=== PATIENT | female | born 1965 | race Caucasian/White ===

== ENCOUNTER 2019-03-05 10:14 | Inpatient (IN) | payer MEDICARE, OTHER, MEDICAID, SELFPAY ==
[2019-03-05] VITALS (19 sets, daily range): BP systolic 99–171; BP diastolic 52–112; PULSE 74–115; RESP 12–30; TEMP 36.3–37.7; O2SAT 92–100
--- NOTE | ~2019-03-05 | CT_ITS ---
EXAMINATION: CT abdomen pelvis w con DATE: 03/05/2019 11:09 INDICATION: Generalized abdominal pain. TECHNIQUE: Computed tomography (CT) of the abdomen and pelvis was performed with 100 mL Omnipaque 350 intravenous contrast. Automated exposure control and iterative reconstruction technique were employe d. The dose-length product was 694.91 mGy-cm. COMPARISON: None. FINDINGS: The visualized portions of the lung bases demonstrate mild atelectasis on the left. No pleu ral effusion. The heart size is normal. No pericardial effusion. The liver, gallbladder, pancreas, an d adrenal glands are normal. There is a 6 mm low-attenuation lesion in the spleen, likely benign. The pancreas and adrenal glands are normal. There is a 1 mm stone in right kidney. There is an 8 mm cyst in left kidney. There are no dilated loops of bowel. The appendix is normal. There is a 9.6 x 8.7 x 10.9 cm mixed hyperdense and hypodense mass in the expected area of the uterus. There is a moderate v olume of hemoperitoneum. There are no pathologically enlarged lymph nodes. 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 IMPRESSION: 1. 10.9 cm heterogeneous mass in the expected area of the uterus, which may be hematoma or uterine fi broids or ovarian mass complicated by hematoma. Neoplasm is not excluded. Consider pelvis MRI without and with contrast after stabilization. 2. Moderate volume of hemoperitoneum. 3. I discussed these results with Dr. Traylor on 03/05/19 at 11:30 AM. Reviewed, dictated and finalized at location A. OMER SUPPORT REPRESENTATIVE IMPRESSION: 1. 10.9 cm heterogeneous mass in the expected area of the uterus, which may be hematoma or uterine fibroids or ovarian mass complicated by hematoma. Neoplasm is not excluded. Consider pelvis MRI without and with contrast after stabilizat ion. 2. Moderate volume of hemoperitoneum. 3. I discussed these results with Dr. Traylor on 03/05/19 at 11:30 AM.
--- NOTE | 2019-03-05 10:20 | ED.ABDPAIN ---
HPI - Abdominal Pain General Chief Complaint: Abdominal Pain Stated Complaint: low abd pain Time Seen by Provider: 03/05/19 10:19 Source: patient, RN notes reviewed and other (nurse) Mode of arrival: EMS Limitations: no limitations History of Present Illness HPI narrative: Pt is a 53 y/o female who presents to the ED, via EMS, with c/o ABD pain since 8am today. Pt reports that she woke up with the pain, but it became excrutiating after she coughed and felt a popping sensation. The pain is in her lower ABD and around her naval. She additionally notes N/V. Pt reports that she'd been on her last period for the past 2 weeks with it stopping completely yesterday, but after the popping sensation this morning she began to notice trace vaginal bleeding again. She states that she feels like something is going to come out if she doesn't keep her ABD/pelvic muscles contracted. Pt denies back pain/tenderness, fever, chills, or a Hx of pain like this before. Pt reports a Hx of HTN (on medication). Pt denies a Hx of HLD, DM, smoking, drinking ETOH, emphysema, or asthma. She also denies a chance of . Per nurse, the pt had been given 4 Zofran and 4 Morphine by EMS while en route to the ED. A year ago the pt underwent a uterine ablation that was followed by a perforation of her uterus with intra abdominal bleeding, which led to her being transferred to [place]. The pt also has a Hx if anemia for which she takes an iron supplement. MD elicited complaint: abdominal pain Pertinent past history: none Onset (ago): hour(s) (since 8am) Pain Consistency: constant Location: other (across lower ABD and around naval) Context: confirms other (woke up with pain, but worsened after feeling a pop when coughing) Associated symptoms: nausea and vomiting Treatments prior to arrival: other (4 Zofran, 4 Morphine) Related Data Home Medications Medication Instructions Recorded Confirmed amlodipine 10 mg PO DAILY 01/18/19 03/18/19 bupropion HCl 300 mg PO DAILY 01/18/19 03/18/19 carbidopa-levodopa 2 tablet PO QID 01/18/19 03/18/19 clonidine HCl 0.1 mg PO BID 12/04/19 02/01/20 diazepam 10 mg PO TID PRN 01/18/19 03/18/19 escitalopram oxalate 20 mg PO DAILY 01/18/19 03/18/19 folic acid 5 mg PO DAILY 01/18/19 03/18/19 hydrochlorothiazide 12.5 mg PO BID 01/18/19 03/18/19 hydrocodone-acetaminophen 1 tablet PO BID PRN 01/18/19 03/18/19 mirtazapine 15 mg PO QPM 01/18/19 03/18/19 propranolol 60 mg PO BID 01/18/19 03/18/19 ropinirole 2 mg PO TID 01/18/19 03/18/19 Allergies Allergy/AdvReac Type Severity Reaction Status Date / Time codeine Allergy Unknown Nausea and Verified 03/05/19 10:15 Vomiting Review of Systems Review of Systems: All systems reviewed & are unremarkable except as noted in HPI and below Constitutional: Constitutional: Denies chills and Denies fever(s) Gastrointestinal: Gastrointestinal: Reports abdominal pain (across lower ABD and around naval), Reports nausea and Reports vomiting Genitourinary: Genitourinary: Reports abnormal vaginal bleeding Musculoskeletal: Musculoskeletal: Denies back pain (or tenderness) [facility] Past Medical History Medical History (Updated 03/18/19 @ 01:22 by Luna Espinal MD) Hemoperitoneum HTN (hypertension) Iron deficiency anemia sees hematology and receives iron infusions (normal spontaneous vaginal delivery) x 5 Parkinson disease patient stated this was due to her severe iron storage problem and is a parkinson like disease Uterine perforation 2019 following uterine ablation with Dr. Gaby Forbes at [facility], occurred with intra abdominal bleeding and transferred to [place] Surgical History Surgical History (Updated 03/17/19 @ 20:59 by Justice Molina) H/O prior ablation treatment 2019, uterine ablation S/P FRANSISCO-BSO Family History Family History Mother Hypertension Father Family history of malignant neoplasm of bone, Onset
[2019-03-05] MEDS: LORAZEPAM INJ 2 MG/ML VIAL 0.5 MG IV PUSH ×2 (10:34→12:30)
[2019-03-05] MEDS: HYDROMORPHONE HCL 1 MG/ML INJ 0.5 MG IV PUSH ×11 (10:34→16:36)
[2019-03-05] MEDS: ONDANSETRON INJ 4 MG/2 ML VIAL IV PUSH (10:34)
[2019-03-05] MEDS: SODIUM CHLORIDE 0.9% IV 1,000 ML 999 ML IV CONT ×2 (10:35→11:54)
--- NOTE | 2019-03-05 10:40 | PC.NURSE ---
Patient is flailing in bed at this time, ativan and dilaudid given.
[2019-03-05 10:52] LABS: Basophils Absolute Auto 0.1 K/mm3 (0.0-0.1); Basophils Percent Auto 0.6 % (0.2-1.2); Eosinophils Absolute Auto 0.1 K/mm3 (0-0.3); Eosinophils Percent Auto 0.7 % (0-4.4); Hematocrit 36.9 % (37.0-47.0); Hemoglobin 12.3 g/dL (12.0-15.0); Immature Granulocyte Absolute 0.13 K/mm3 (0.00-0.031); Immature Granulocyte Percent A 0.7 % (0-0.5); Lymphocytes Absolute Auto 1.48 K/mm3 (0.9-3.2); Lymphocytes Percent Auto 7.9 % (18.3-44.2); Mean Corpuscular HGB Conc 33.3 g/dl (32-36); Mean Corpuscular Hemoglobin 30.9 pg (26-34); Mean Corpuscular Volume 92.7 fl (80-100); Mean Platelet Volume 9.6 fl (7.4-10.4); Monocytes Absolute Auto 0.9 K/mm3 (0.1-0.6); Monocytes Percent Auto 4.9 % (2.6-8.5); Neutrophils Absolute Auto 15.9 K/mm3 (1.3-6.7); Neutrophils Percent Auto 85.2 % (45.5-73.1); Platelet Count Result 451 k/mm3 (150-375); Red Blood Count 3.98 M/mm3 (4.2-5.4); White Blood Count 18.7 K/mm3 (4.5-10.0)
[2019-03-05 11:01] LABS: Blood Urea Nitrogen 11 mg/dL (8-26); Estimated Glomerular Filt Rate > 60
[2019-03-05 11:04] LABS: Alanine Aminotransferase 23 U/L (4-35); Albumin Level 4.1 g/dL (3.5-5.1); Alkaline Phosphatase 151 U/L (38-126); Aspartate Amino Transferase 24 U/L (14-36); Bilirubin,Total 0.3 mg/dL (0.2-1.3); Blood Urea Nitrogen 12 mg/dL (7-17); Calcium 9.1 mg/dL (8.4-10.2); Carbon Dioxide 21 mmol/L (22-30); Chloride 105 mmol/L (98-107); Estimated Glomerular Filt Rate > 60; Glucose 121 mg/dL (65-105); Lipase 65 U/L (23-300); Sodium 137 mmol/L (137-145)
[2019-03-05 11:31] LABS: Add Urine Microscopic? YES; Appearance Urine Clear (Clear); Bilirubin Urine Negative (Negative); Blood Urine 2+ (Negative); Color Urine Yellow (Yellow); Glucose Urine UA Negative (Negative); Ketones Urine Negative (Negative); Leukocyte Esterase Ur Negative LEU/UL (Negative); Mucus Urine Rare /lpf; Nitrate Urine Negative (Negative); Protein Urine 1+ mg/dL (Negative); Squamous Epithelial Cell Urine Rare /hpf (Few); Urobilinogen Urine Negative mg/dL (<2.0); WBC Urine 0-3 /hpf
--- NOTE | 2019-03-05 12:20 | PM.IMHP ---
H&P: HPI History of Present Illness Chief complaint: low abd pain Narrative: Cande Julian is a 53 year old female with sudden abdominal pain that woke her from sleep this am. Had a coughing/gagging episode and pain increased severely so she came to ER. After several doses of dauladid, she is still writhing in pain. Patient states cycles have been mostly regular and light except this past cycle lasted 2 wks and was heavy. [facility] Past Medical History Medical History (Updated 03/05/19 @ 12:32 by Liz Whitlock MD) HTN (hypertension) Iron deficiency anemia sees hematology and receives iron infusions (normal spontaneous vaginal delivery) x 5 Parkinson disease patient stated this was due to her severe iron storage problem and is a parkinson like disease Uterine perforation 2019 following uterine ablation with Dr. Gaby Forbes at [facility], occurred with intra abdominal bleeding and transferred to [place] Surgical History Surgical History (Updated 03/05/19 @ 12:33 by Liz Whitlock MD) H/O prior ablation treatment 2019, uterine ablation Family History Family History (Updated 10/12/13 @ 07:13 by DOCTOR UNKNOWN) Mother Hypertension Father Family history of malignant neoplasm of bone, Onset Age: 77 Social History Social History Smoking status: Never smoker Alcohol intake: current Gender identity (if verbalized by the patient): Female Meds Home Medications and Allergies Home Medications Medication Instructions Recorded Confirmed Type amlodipine 01/18/19 History amoxicillin-pot clavulanate 1 tablet PO Q12H #14 tablet 01/18/19 Rx [Augmentin] bupropion HCl mg PO 01/18/19 History carbidopa-levodopa tablet 01/18/19 History clonidine HCl 01/18/19 History clonidine HCl 01/18/19 History diazepam 01/18/19 History escitalopram oxalate mg 01/18/19 History folic acid 5 mg PO DAILY 01/18/19 History hydrochlorothiazide 01/18/19 History hydrocodone-acetaminophen tablet 01/18/19 History mirtazapine mg 01/18/19 History propranolol 01/18/19 History ropinirole mg 01/18/19 History Allergies Allergy/AdvReac Type Severity Reaction Status Date / Time codeine Allergy Unknown Nausea and Verified 03/05/19 10:15 Vomiting Vital Signs Vital Signs - 24 hr 03/05/19 10:09 03/05/19 11:19 03/05/19 11:23 Temperature 97.3 F L 97.3 F L Pulse Rate 115 H 113 H Respiratory Rate 30 H 18 Blood Pressure 164/112 H 171/110 H Pulse Oximetry 99 97 03/05/19 12:13 Temperature 97.3 F L Pulse Rate Respiratory Rate Blood Pressure Pulse Oximetry Exam Const: General: in distress Other: writhing and shaking in bed on side GI: GI Palp: Yes Soft to palpation, Yes Tenderness to palpation present (GI) and Yes Guarding due to palpation present (GI) Psych: Mental Status: mental status grossly normal H&P: Results Labs Labs: Short CBC 03/05/19 Range/Units 10:47 WBC 18.7 H (4.5-10.0) K/mm3 Hgb 12.3 (12.0-15.0) g/dL Hct 36.9 L (37.0-47.0) % Plt Count 451 H (150-375) k/mm3 BMP 03/05/19 03/05/19 10:47 10:58 Sodium 137 Potassium 4.0 Chloride 105 Carbon Dioxide 21 L BUN 12 11 Creatinine 0.70 0.70 Glucose 121 H Calcium 9.1 Liver Function 03/05/19 Range/Units 10:47 Total Bilirubin 0.3 (0.2-1.3) mg/dL AST 24 (14-36) U/L ALT 23 (4-35) U/L Alkaline Phosphatase 151 H (38-126) U/L Albumin 4.1 (3.5-5.1) g/dL Urine 03/05/19 Range/Units 11:19 Urine Color Yellow (Yellow) Urine Appearance Clear (Clear) Urine pH 6.0 (5.0-9.0) Ur Specific [place] 1.040 H (1.001-1.035) Urine Protein 1+ H (Negative) mg/dL Urine Glucose (UA) Negative (Negative) mg/dL Assessment and Plan Assessment and plan (1) Hemoperitoneum: Code(s): K66.1 - Hemoperitoneum Status: Acute Assessment and Plan: per CT scan Recommend to proceed with diagnostic lapa
--- NOTE | 2019-03-05 13:21 | WPDANESEPPF ---
Anes - Initial Pre Proc Eval Procedure: Operation Date: 03/05/19 13:30 Proposed Procedures p Diagnostic Laparoscopy Pos Lap - Liz Whitlock MD Date/Time: 03/05/19 13:21 Surgeon: Liz Whitlock MD Pre Op Diagnosis: low abd pain Patient Data Age: 53 Gender: F Height: Weight: 81.8 kg Last Vital Signs Temp 36.3 C L 03/05/19 12:13 Pulse 113 H 03/05/19 11:19 Resp 18 03/05/19 11:19 BP 171/110 H 03/05/19 11:19 Pulse Ox 97 03/05/19 11:19 Allergies Allergy/AdvReac Type Severity Reaction Status Date / Time codeine Allergy Unknown Nausea and Verified 03/05/19 10:15 Vomiting Home Medications Medication Instructions Recorded Confirmed Type amlodipine 01/18/19 History amoxicillin-pot clavulanate 1 tablet PO Q12H #14 tablet 01/18/19 Rx [Augmentin] bupropion HCl mg PO 01/18/19 History carbidopa-levodopa tablet 01/18/19 History clonidine HCl 01/18/19 History clonidine HCl 01/18/19 History diazepam 01/18/19 History escitalopram oxalate mg 01/18/19 History folic acid 5 mg PO DAILY 01/18/19 History hydrochlorothiazide 01/18/19 History hydrocodone-acetaminophen tablet 01/18/19 History mirtazapine mg 01/18/19 History propranolol 01/18/19 History ropinirole mg 01/18/19 History Laboratory Tests 03/05/19 03/05/19 03/05/19 10:47 10:47 10:58 WBC 18.7 K/mm3 H K/mm3 (4.5-10.0) RBC 3.98 M/mm3 L M/mm3 (4.2-5.4) Hgb 12.3 g/dL g/dL (12.0-15.0) Hct 36.9 % L % (37.0-47.0) MCV 92.7 fl fl (80-100) MCH 30.9 pg pg (26-34) MCHC 33.3 g/dl g/dl (32-36) RDW 13.0 % % (11.5-14.5) Plt Count 451 k/mm3 H k/mm3 (150-375) MPV 9.6 fl fl (7.4-10.4) Immature Gran % (Auto) 0.7 % H % (0-0.5) Neut % (Auto) 85.2 % H % (45.5-73.1) Lymph % (Auto) 7.9 % L % (18.3-44.2) [place] % (Auto) 4.9 % % (2.6-8.5) Eos % (Auto) 0.7 % % (0-4.4) Baso % (Auto) 0.6 % % (0.2-1.2) Lymph # (Auto) 1.48 K/mm3 K/mm3 (0.9-3.2) [place] # (Auto) 0.9 K/mm3 H K/mm3 (0.1-0.6) Eos # (Auto) 0.1 K/mm3 K/mm3 (0-0.3) Baso # (Auto) 0.1 K/mm3 K/mm3 (0.0-0.1) Abs Immat Gran (auto) 0.13 K/mm3 H K/mm3 (0.00-0.031) Absolute Neuts (auto) 15.9 K/mm3 H K/mm3 (1.3-6.7) Absolute Nucleated RBC 0.0 K/mm3 K/mm3 (0.0-0.012) Nucleated RBC % 0.0 % % (0.0-0.2) Sodium 137 mmol/L mmol/L (137-145) Potassium 4.0 mmol/L mmol/L (3.4-5.0) Chloride 105 mmol/L mmol/L (98-107) Carbon Dioxide 21 mmol/L L mmol/L (22-30) BUN 12 mg/dL mg/dL 11 mg/dL mg/dL (7-17) (8-26) Creatinine 0.70 mg/dL mg/dL 0.70 mg/dL mg/dL (0.7-1.0) (0.7-1.2) Estim Creat Clear Calc Not Reportable Not Reportable Estimated GFR > 60 > 60 (59 - ) (59 - ) Glucose 121 mg/dL H mg/dL (65-105) Calcium 9.1 mg/dL mg/dL (8.4-10.2) Total Bilirubin 0.3 mg/dL mg/dL (0.2-1.3) AST 24 U/L U/L (14-36) ALT 23 U/L U/L (4-35) Alkaline Phosphatase 151 U/L H U/L (38-126) Total Protein 7.0 g/dL g/dL (6.3-8.2) Albumin 4.1 g/dL g/dL (3.5-5.1) Lipase 65 U/L U/L (23-300) Urine Color Urine Appearance Urine pH Ur Specific [place] Urine Protein Urine Glucose (UA) Urine Ketones Ur Blood (Man) Urine Nitrate Urine Bilirubin Urine Urobilinogen Leukocyte Esterase Rfl Urine RBC Urine WBC Ur Squamous Epith Cells Hyaline Casts Urine Mucus 03/05/19 11:19 WBC RBC Hgb Hct MCV MCH MCHC RDW
[2019-03-05] MEDS: ceFAZolin SODIUM 1 GM VIAL 2 GM IV PUSH (13:55)
--- NOTE | 2019-03-05 15:39 | PM.OP ---
Procedure Note - Brief Procedure Note - Brief Date of procedure: 03/05/19 Pre-op diagnosis: low abd pain Hemoperitoneum Abdominal pain Post-op diagnosis: other (same plus uterine perforations) Procedure performed: diagnostic laparoscopy converted to FRANSISCO-BSO Surgeon: Liz Whitlock MD Estimated blood loss (mL): 1,600 (450 approximate found in abdomen upon opening and 1150 EBL during case) Drains: Yes (jeffrey) Packing: No Pathology: yes Complications: Other complications (bleeding) Condition: stable Disposition: PACU Findings: large hemoperitoneum noted upon laparoscopy; upper right fundus noted to have what appeared to be a perforation that is bleeding; posterior uterus with 2 large areas also noted to be perforations; uterus extremely friable; tubes, ovaries, and peritoneal surfaces appear and palpate as normal
[2019-03-05] MEDS: LACTATED RINGERS 1,000 ML 30 ML IV CONT (15:41)
--- NOTE | 2019-03-05 15:52 | PM.DS ---
DS: Diagnosis Admitting Diagnosis Admitting Diagnosis: Hemoperitoneum abdominal pain Discharge Diagnosis (1) S/P FRANSISCO-BSO: Code(s): Z90.710 - Acquired absence of both cervix and uterus; Z90.722 - Acquired absence of ovaries, bilateral; Z90.79 - Acquired absence of other genital organ(s) Status: Acute DS: Summary Hospital Course Reason for hospitalization: post op care Hospital Course: Admitted through ER, taken for laparoscopy which was converted to FRANSISCO-BSO. Tolerating regular diet, voiding, and ambulating prior to dc. Status at Discharge Functional status at discharge: independent ambulation Overall status at discharge: patient is progressing back to baseline Time Spent with Patient Time attestation: Total time spent providing and/or coordinating discharge services: Time spent: Less than 30 minutes DS: Data Data Completed and Pending Pending studies at discharge: Pending at discharge 03/05/19 14:57 Surgical [PTH] Routine Labs on day of discharge: Labs from last 24 hours 03/05/19 03/05/19 03/05/19 11:54 11:19 10:58 WBC RBC Hgb Hct MCV MCH MCHC RDW Plt Count MPV Immature Gran % (Auto) Neut % (Auto) Lymph % (Auto) [place] % (Auto) Eos % (Auto) Baso % (Auto) Lymph # (Auto) [place] # (Auto) Eos # (Auto) Baso # (Auto) Abs Immat Gran (auto) Absolute Neuts (auto) Absolute Nucleated RBC Nucleated RBC % Sodium Potassium Chloride Carbon Dioxide BUN 11 Creatinine 0.70 Estim Creat Clear Calc Not Reportable Estimated GFR > 60 Glucose Calcium Total Bilirubin AST ALT Alkaline Phosphatase Total Protein Albumin Lipase Urine Color Yellow Urine Appearance Clear Urine pH 6.0 Ur Specific [place] 1.040 H Urine Protein 1+ H Urine Glucose (UA) Negative Urine Ketones Negative Ur Blood (Man) 2+ H Urine Nitrate Negative Urine Bilirubin Negative Urine Urobilinogen Negative Leukocyte Esterase Rfl Negative Urine RBC 3-5 H Urine WBC 0-3 Ur Squamous Epith Cells Rare Hyaline Casts 1-2 Urine Mucus Rare Blood Type A Positive Antibody Screen Negative 03/05/19 03/05/19 10:47 10:47 WBC 18.7 H RBC 3.98 L Hgb 12.3 Hct 36.9 L MCV 92.7 MCH 30.9 MCHC 33.3 RDW 13.0 Plt Count 451 H MPV 9.6 Immature Gran % (Auto) 0.7 H Neut % (Auto) 85.2 H Lymph % (Auto) 7.9 L [place] % (Auto) 4.9 Eos % (Auto) 0.7 Baso % (Auto) 0.6 Lymph # (Auto) 1.48 [place] # (Auto) 0.9 H Eos # (Auto) 0.1 Baso # (Auto) 0.1 Abs Immat Gran (auto) 0.13 H Absolute Neuts (auto) 15.9 H Absolute Nucleated RBC 0.0 Nucleated RBC % 0.0 Sodium 137 Potassium 4.0 Chloride 105 Carbon Dioxide 21 L BUN 12 Creatinine 0.70 Estim Creat Clear Calc Not Reportable Estimated GFR > 60 Glucose 121 H Calcium 9.1 Total Bilirubin 0.3 AST 24 ALT 23 Alkaline Phosphatase 151 H Total Protein 7.0 Albumin 4.1 Lipase 65 Urine Color Urine Appearance Urine pH Ur Specific [place] Urine Protein Urine Glucose (UA) Urine Ketones Ur Blood (Man) Urine Nitrate Urine Bilirubin Urine Urobilinogen Leukocyte Esterase Rfl Urine RBC Urine WBC Ur Squamous Epith Cells Hyaline Casts Urine Mucus Blood Type Antibody Screen Discharge Plan Discharge Attending physician on discharge: Liz Whitlock Discharging Clinician: Liz Whitlock Anticipated Discharge Date/Time: 03/08/19 07:26 Patient Disposition: Home, Self-Care Activity: no shower, may drive after 2 weeks and pelvic rest Diet: regular Wound Care Instructions: incision open to air Patient Instructions: Hysterectomy (GEN) Follow-up/Referrals: Sanjay Thayer MD [Primary Care Provider] - Liz Whitlock MD [Physician] - 1 Week Discharge Medications: New hydrocodon
[2019-03-05] MEDS: MIDAZOLAM HCL 2 MG/2 ML VIAL IV PUSH (16:42)
[2019-03-05 17:23] LABS: Hematocrit 28.9 % (37.0-47.0); Hemoglobin 9.4 g/dL (12.0-15.0); Mean Corpuscular HGB Conc 32.5 g/dl (32-36); Mean Corpuscular Hemoglobin 30.9 pg (26-34); Mean Corpuscular Volume 95.1 fl (80-100); Mean Platelet Volume 10.1 fl (7.4-10.4); Platelet Count Result 368 k/mm3 (150-375); Red Blood Count 3.04 M/mm3 (4.2-5.4); Red Cell Distribution Width 13.3 % (11.5-14.5); White Blood Count 21.1 K/mm3 (4.5-10.0)
[2019-03-05 17:58] LABS: Transferrin 203 mg/dL (206-381)
[2019-03-05] MEDS: DEXTROSE 5%/LACTATED RINGERS 1,000 ML 125 ML IV CONT (18:21)
[2019-03-05] MEDS: KETOROLAC 30 MG/ML VIAL (*BKC) IV PUSH (19:02)
--- NOTE | 2019-03-05 19:04 | PC.NURSE ---
At 1752, pt admitted to 2nd floor room 289 per stretcher. Alert and oriented x3.
[2019-03-06] VITALS (7 sets, daily range): BP systolic 92–131; BP diastolic 46–78; PULSE 79–81; RESP 16–18; TEMP 36.9–37.4; O2SAT 90–100
[2019-03-06] MEDS: DEXTROSE 5%/LACTATED RINGERS 1,000 ML 125 ML IV CONT ×2 (02:25→11:02)
[2019-03-06] MEDS: KETOROLAC 30 MG/ML VIAL (*BKC) IV PUSH ×3 (03:55→16:52)
[2019-03-06 04:43] LABS: Basophils Percent Auto 0.3 % (0.2-1.2); Hematocrit 26.2 % (37.0-47.0); Hemoglobin 8.5 g/dL (12.0-15.0); Immature Granulocyte Absolute 0.09 K/mm3 (0.00-0.031); Immature Granulocyte Percent A 0.7 % (0-0.5); Lymphocytes Absolute Auto 1.44 K/mm3 (0.9-3.2); Lymphocytes Percent Auto 11.1 % (18.3-44.2); Mean Corpuscular HGB Conc 32.4 g/dl (32-36); Mean Corpuscular Volume 95.6 fl (80-100); Mean Platelet Volume 9.8 fl (7.4-10.4); Monocytes Percent Auto 7.7 % (2.6-8.5); Neutrophils Absolute Auto 10.4 K/mm3 (1.3-6.7); Neutrophils Percent Auto 80.2 % (45.5-73.1); Platelet Count Result 336 k/mm3 (150-375); Red Blood Count 2.74 M/mm3 (4.2-5.4); Red Cell Distribution Width 13.4 % (11.5-14.5)
--- NOTE | 2019-03-06 06:22 | OP_ITS ---
DATE OF PROCEDURE: 03/05/2019 PREOPERATIVE DIAGNOSIS: Hemoperitoneum, abdominal pain. POSTOPERATIVE DIAGNOSIS: Hemoperitoneum, abdominal pain plus uterine rupture. PROCEDURE: Diagnostic laparoscopy, total abdominal hysterectomy, and bilateral salpingo-oophorectomy. SURGEON: Liz Whitlock M.D.. ANESTHESIA: General with ET tube. FINDINGS: Upon opening laparoscopically reveal a large hemoperitoneum as the blood is removed. There is visible bleeding and what appears to be a perforation at the right fundus on the posterior wall as well as the left posterior and mid uterus are bleeding and appears to have perforations. Ovaries were not visible laparoscopically. There were large clots that were not able to be removed with the suction device. Due to the appearance of the uterus, decision was made to proceed with hysterectomy. Upon opening, the uterus is noted to be incredibly friable and there are multiple sites that are bleeding. The ovaries and tubes are eventually visualized and appear normal. The peritoneal cavity appears smooth. There were no implantation or visible lesion on the peritoneal surfaces. The tubes on the left side are somewhat edematous, otherwise appear normal. The cervix appears normal as does the lower uterine segment. ESTIMATED BLOOD LOSS: 450 cc, evacuated prior to surgery, started during the laparoscopy with an additional 1250 cc loss during the procedure. PATHOLOGY: Uterus, tubes and ovaries. PROCEDURE: The patient was taken to the operating room, placed under anesthesia in the dorsal lithotomy position. She was prepped and draped in the usual sterile fashion. The bladder was drained with a red rubber catheter at 450 cc of clear yellow urine. The cervix was grasped on the anterior lip with a tenaculum. The uterus is not able to be sounded and the [address] manipulator was placed. The attention was then turned to the abdomen. A vertical skin incision was made at the base of the umbilicus. The abdomen was tented. The Veress needle placed. Water drop test was normal. Blood was aspirated at the time of checking for proper placement. Opening patient pressure was 5 mmHg. Pneumoperitoneum was obtained with the CO2 to a patient pressure of 15 mmHg. The 5 mm Optiview was then placed while tenting the abdomen. Intraabdominal placement was confirmed with the laparoscope. The patient was placed in Trendelenburg. A 5 mm skin incision was made approximately 4 cm above the symphysis pubis. Due to the large size of what appears to be the uterus, the trocar was placed under direct visualization. The aspirator is used to remove the visible superficial blood. After removing the superficial blood, the uterus and fundus is visible and there appears to be an area of bleeding on the right fundus that appears to be ruptured. The manipulator is used to continue suctioning and the posterior wall of the uterus was eventually able to be visualized and they were 2 additional areas that appear to have bleeding and rupture. The ovary is not visible at this time. Due to the findings on laparoscopy, decision was made to proceed with open exploratory laparotomy and total abdominal hysterectomy with bilateral salpingo-oophorectomy. The pneumoperitoneum was reduced. The instruments were removed. A scalpel was used to open a Pfannenstiel skin incision through the prior lower incision. The incision was carried down to the fascia, which was nicked in the midline. The fascial edges were grasped with oschners and the muscles were off using sharp and blunt dissection. The rectus muscles were in the midline. The peritoneum was tented, entered with Metzenbaum, and extended with blunt traction. The bowel was packed away using moist laparotomy sponges and the clots were removed manually using
--- NOTE | 2019-03-06 08:45 | WPDANESPN ---
Anes - Prog Note Post-Op Date/Time: 03/06/19 08:45 Cardiovascular status: normal Respiratory status: normal Airway patency: baseline Mental status: baseline Post-Op hydration status: normal Vital Signs: Last Vital Signs Temp 37.4 C 03/06/19 02:00 Pulse 86 03/05/19 23:00 Resp 16 03/06/19 04:00 BP 131/78 03/06/19 04:00 Pulse Ox 98 03/06/19 04:00 I/O: Intake & Output 03/05/19 03/06/19 03/06/19 23:59 07:59 15:59 Intake Total 700 1230 Output Total 600 1100 Balance 100 130 Laboratory Tests 03/06/19 04:36 03/05/19 10:58 03/05/19 03/05/19 03/05/19 10:47 10:47 10:58 WBC 18.7 H RBC 3.98 L Hgb 12.3 Hct 36.9 L MCV 92.7 MCH 30.9 MCHC 33.3 RDW 13.0 Plt Count 451 H MPV 9.6 Immature Gran % (Auto) 0.7 H Neut % (Auto) 85.2 H Lymph % (Auto) 7.9 L Stanton % (Auto) 4.9 Eos % (Auto) 0.7 Baso % (Auto) 0.6 Lymph # (Auto) 1.48 Stanton # (Auto) 0.9 H Eos # (Auto) 0.1 Baso # (Auto) 0.1 Abs Immat Gran (auto) 0.13 H Absolute Neuts (auto) 15.9 H Absolute Nucleated RBC 0.0 Nucleated RBC % 0.0 Sodium 137 Potassium 4.0 Chloride 105 Carbon Dioxide 21 L BUN 12 11 Creatinine 0.70 0.70 Estim Creat Clear Calc Not Reportable Not Reportable Estimated GFR > 60 > 60 Glucose 121 H Calcium 9.1 Transferrin Ferritin Total Bilirubin 0.3 AST 24 ALT 23 Alkaline Phosphatase 151 H Total Protein 7.0 Albumin 4.1 Lipase 65 Urine Color Urine Appearance Urine pH Ur Specific [place] Urine Protein Urine Glucose (UA) Urine Ketones Ur Blood (Man) Urine Nitrate Urine Bilirubin Urine Urobilinogen Leukocyte Esterase Rfl Urine RBC Urine WBC Ur Squamous Epith Cells Hyaline Casts Urine Mucus Blood Type Antibody Screen 03/05/19 03/05/19 03/05/19 11:19 11:54 17:10 WBC 21.1 H RBC 3.04 L Hgb 9.4 L Hct 28.9 L MCV 95.1 MCH 30.9 MCHC 32.5 RDW 13.3 Plt Count 368 MPV 10.1 Immature Gran % (Auto) Neut % (Auto) Lymph % (Auto) Stanton % (Auto) Eos % (Auto) Baso % (Auto) Lymph # (Auto) Stanton # (Auto) Eos # (Auto) Baso # (Auto) Abs Immat Gran (auto) Absolute Neuts (auto) Absolute Nucleated RBC Nucleated RBC % Sodium Potassium Chloride Carbon Dioxide BUN Creatinine Estim Creat Clear Calc Estimated GFR Glucose Calcium Transferrin Ferritin Total Bilirubin AST ALT Alkaline Phosphatase Total Protein Albumin Lipase Urine Color Yellow Urine Appearance Clear Urine pH 6.0 Ur Specific [place] 1.040 H Urine Protein 1+ H Urine Glucose (UA) Negative Urine Ketones Negative Ur Blood (Man) 2+ H Urine Nitrate Negative Urine Bilirubin Negative Urine Urobilinogen Negative Leukocyte Esterase Rfl Negative Urine RBC 3-5 H Urine WBC 0-3 Ur Squamous Epith Cells Rare Hyaline Casts 1-2 Urine Mucus Rare Blood Type A Positive Antibody Screen Negative 03/05/19 03/05/19 03/06/19 17:10 17:10 04:36 WBC 13.0 H RBC 2.74 L Hgb 8.5 L Hct 26.2 L MCV 95.6 MCH 31.0 MCHC 32.4 RDW 13.4 Plt Count 336 MPV 9.8 Immature Gran % (Auto) 0.7 H Neut % (Auto) 80.2 H Lymph % (Auto) 11.1 L Stanton % (Auto) 7.7 Eos % (Auto) 0.0 Baso % (Auto) 0.3 Lymph # (Auto) 1.44 Stanton # (Auto) 1.0 H Eos # (Auto) 0.0 Baso # (Auto) 0.0 Abs Immat Gran (auto) 0.09 H Absolute Neuts (auto) 10.4 H Absolute Nucleated RBC 0.0 Nucleated RBC % 0.0 Sodium Potassium Chloride Carbon Dioxide BUN Creatinine Estim Creat Clear Calc Estimated GFR Glucose Calcium Transferrin 203 L Ferritin 245.00 Total Bilirubin AST ALT Alkaline Phosphatase Total Protein Albumin
[2019-03-06] MEDS: SIMETHICONE 80 MG TAB.CHEW PO ×4 (10:18→22:45)
--- NOTE | 2019-03-06 10:24 | PM.GYNPNOP ---
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 Patient reports pain not well controlled but appears comfortable while talking for 20 min to provider (pump not hit to request more pain meds). Patient reports nausea and is not drinking much. Slow progress so far. Encouraged to move more and to sit up to chair. 20 min spent explaining procedure and care to patient and her mother. Many questions answered. Continue post op care. Postoperative Procedures: Procedures Operation Date: 03/05/19 13:30 Actual Procedures Side Surgeon p Diagnostic Laparoscopy,Open Laparotomy, Total Abdomnial Hysterectomy with Bilateral Salpingo-Oophorectomy Not Applicable Liz Whitlock MD Time Spent With Patient Time: Total time spent is greater than 50% in coordination of care (as documented) at patient's floor/unit and/or counseling patient: Time with patient: 15 - 25 minutes STRING LASTER- PN:Subj Post-Op Subjective Date/time seen: 03/06/19 10:24 Subjective: patient reports nausea and pain not well controlled Exam Const: General: comfortable and alert GI: Inspection: normal to inspection GI Palp: Yes abdominal tenderness Auscultation: Hypoactive bowel sounds present Other: inc c/d/i STRING LASTER - PN: Obj Data Vital Signs Vital Signs: Vital Signs - 24 hr 03/05/19 11:19 03/05/19 11:23 03/05/19 12:13 Temperature 97.3 F L 97.3 F L Pulse Rate 113 H Respiratory Rate 18 Blood Pressure 171/110 H Pulse Oximetry 97 03/05/19 15:41 03/05/19 15:55 03/05/19 16:10 Temperature 97.6 F Pulse Rate 88 82 79 Respiratory Rate 16 16 15 Blood Pressure 139/76 147/75 H 146/76 H Pulse Oximetry 96 93 92 03/05/19 16:25 03/05/19 16:40 03/05/19 16:55 Temperature Pulse Rate 86 74 75 Respiratory Rate 16 16 16 Blood Pressure 146/80 H 128/75 130/62 Pulse Oximetry 100 96 96 03/05/19 17:10 03/05/19 17:25 03/05/19 17:55 Temperature 98.4 F Pulse Rate 81 81 80 Respiratory Rate 12 12 18 Blood Pressure 128/68 121/70 137/74 Pulse Oximetry 98 94 98 03/05/19 18:15 03/05/19 18:30 03/05/19 20:00 Temperature 98.9 F Pulse Rate 78 95 83 Respiratory Rate 18 18 18 Blood Pressure 129/63 139/88 113/52 L Pulse Oximetry 97 98 99 03/05/19 21:00 03/05/19 22:00 03/05/19 23:00 Temperature 99.8 F H Pulse Rate 76 82 86 Respiratory Rate 18 18 18 Blood Pressure 120/52 L 120/55 L 99/80 L Pulse Oximetry 98 99 03/06/19 00:01 03/06/19 02:00 03/06/19 04:00 Temperature 99.4 F Pulse Rate Respiratory Rate 18 18 16 Blood Pressure 102/51 L 94/61 L 131/78 Pulse Oximetry 99 100 98 03/06/19 07:35 Temperature 99.2 F Pulse Rate 80 Respiratory Rate 16 Blood Pressure 103/52 L Pulse Oximetry 100 Intake/Output Intake/Output: Intake & Output 03/03/19 03/04/19 03/05/19 03/06/19 23:59 23:59 23:59 23:59 Intake Total 2700 1223.8 Output Total 1400 1100 Balance 1300 123.8 Meds/Results Medications: Active Medications Generic Name Dose Route Start Last Admin Trade Name Freq PRN Reason Stop Dose Admin Dextrose/Lactated Ringer's 1,000 mls @ 125 mls/hr 03/05/19 17:41 03/06/19 02:25 Dextrose 5%/Lactated Ringers IV CONT 125 mls/hr .Q8H LORETTA Administration Fentanyl Citrate 600 mcg in 30 mls @ 0.5 mls/hr 03/05/19 17:41 03/06/19 07:36 Fentanyl 20 Mcg/Ml Blower Insulator IV CONT 10 mcg/hr .Q24H PRN 0.5 mls/hr KNITTING TESTER Management Administration Protocol 10 MCG/HR Ibuprofen 600 mg 03/05/19 17:41 Motrin PO Q6H PRN Cramping Ketorolac Tromethamine 30 mg 03/05/19 17:41 03/06/19 03:55 Toradol Inj IV PUSH 03/10/19 17:42 30 mg Q6H PRN Administration Pain Rated 4-6 Naloxone HCl 0.1 mg 03/05/19 17:41 Narcan IV PUSH Q2M PRN Respiratory rate less than 10
[2019-03-06] MEDS: PROMETHAZINE HCL 25 MG TABLET PO ×2 (12:29→16:51)
[2019-03-06] MEDS: buPROPion HCL XL (24 HR) 150 MG TABCR 300 MG PO (12:45)
[2019-03-06] MEDS: CLONIDINE HCL 0.1 MG TABLET PO (12:46)
[2019-03-06] MEDS: hydroCHLOROthiazide 12.5 MG CAPSULE PO (12:47)
[2019-03-06] MEDS: LACTATED RINGERS 500 ML 999 ML IV CONT (19:32)
--- NOTE | 2019-03-06 20:35 | PC.NURSE ---
1200 Meds reviewed with pt and with Dr. Whitlock at 1215; BP meds, Amlodipine and Propranolol held today. Dr aware that pt has been uncooperative and not taking po fluids well; nurse has encouraged her, as well as her family members. Pt insistent that she will not get out of bed until she is not hurting. Nurse repeatedly has encouraged pt on the importance of getting out of bed and moving, importance of deep breathing, and increasing her po intake of fluids. Pt stopped her own IV fluids; then agreed to have them restarted and refused to stop Fentanyl until she could give herself the DEPARTMENT TRAFFIC FREIGHT ROUTER dose. 1330 Fentanyl DEPARTMENT TRAFFIC FREIGHT ROUTER discontinue, and IV saline locked; pt's po pain meds started. Pt again was encouraged to take more po fluids; she has repeated been offered different options, and a pitcher of iced tea was brought to her; pt had a glass of tea. 1430 Nurse and nurse aide at bedside; pt moved to the chair insisting on moving on her on and would not accept assistance; did seem to listen to nurse about rolling to her side and using bed to assist her to sitting position. 1530 pt sleeping in the chair; nurse woke her and was present with aide while pt returned to bed. SCD's continued. Respiratory therapists have been in to see pt. Pt refused to do the IS. 1640 Pt sleeping soundly. VSS; abdomen soft. Pt will respond, and briskly when any care attempted. Nurse again encouraged pt to take more po fluids, and she took a few sips for nurse. 1750 nurse went to bedside to remove pt's catheter as ordered. Pt refused to have the catheter removed until she talked to the DrKamlesh; nurse agreed to call the ; pt has again refused to do her IS with the respiratory therapists. [address] Moralez; full report given to her about this pt; order received for a bolus of LR, 50cc, then remove jeffrey; if pt refuses the bolus, keep jeffrey in place. Report given to night nurse.
[2019-03-06] MEDS: MIRTAZAPINE 15 MG TABLET PO (22:39)
[2019-03-06] MEDS: ESCITALOPRAM OXALATE 10 MG TABLET 20 MG PO (22:39)
[2019-03-07 00:40] VITALS: BP 103/54; PULSE 85; RESP 16; TEMP 37.1; O2SAT 100
[2019-03-07] MEDS: PROMETHAZINE HCL 25 MG TABLET PO ×5 (03:00→20:55)
[2019-03-07] MEDS: ONDANSETRON INJ 4 MG/2 ML VIAL IV PUSH (04:37)
[2019-03-07 04:46] VITALS: BP 110/63; PULSE 84; RESP 17; TEMP 37.1; O2SAT 100
[2019-03-07] MEDS: CARBIDOPA/LEVODOPA 25/100 MG TABLET 2 TABLET PO ×3 (06:43→17:51)
[2019-03-07 07:30] VITALS: BP 125/67; PULSE 84; RESP 16; TEMP 37.3; O2SAT 97
--- NOTE | 2019-03-07 07:41 | PM.GYNPNOP ---
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 slow to advance in all areas and unwilling to try yesterday for RN. Minimal po intake and minimal movement. O2 still on. Discussed with patient risks for pneumonia, DVT, and slow bowel return if she doesnt move and use spiromter. Patient reluctantly agrees to try better. Will get rid of bedside commode, encouraged up to halls by noon. Continue to hold BP meds due to normal/lower bp's. Postoperative Procedures: Procedures Operation Date: 03/05/19 13:30 Actual Procedures Side Surgeon p Diagnostic Laparoscopy,Open Laparotomy, Total Abdomnial Hysterectomy with Bilateral Salpingo-Oophorectomy Not Applicable Liz Whitlock MD Time Spent With Patient Time: Total time spent is greater than 50% in coordination of care (as documented) at patient's floor/unit and/or counseling patient: Time with patient: 15 - 25 minutes ACADEMIC DIRECTOR- PN:Subj Post-Op Subjective Date/time seen: 03/07/19 07:41 Interval history: Only up to bedside commode. Refused incentive spirometry. c/o gas pains Subjective: patient reports feeling better and pain is well controlled Exam GI: Inspection: abdominal wall ecchymosis and incision (c/d/i) GI Palp: Yes abdominal tenderness (appropriate) and Yes Soft to palpation Percussion: Yes normal to percussion Auscultation: normal bowel sounds ACADEMIC DIRECTOR - PN: Obj Data Vital Signs Vital Signs: Vital Signs - 24 hr 03/06/19 11:55 03/06/19 16:40 03/06/19 21:06 Temperature 99 F 98.5 F 98.4 F Pulse Rate 81 79 Respiratory Rate 16 18 16 Blood Pressure 109/56 L 97/50 L 92/46 L Pulse Oximetry 95 90 03/07/19 00:40 03/07/19 04:46 Temperature 98.7 F 98.8 F Pulse Rate 85 84 Respiratory Rate 16 17 Blood Pressure 103/54 L 110/63 Pulse Oximetry 100 100 Intake/Output Intake/Output: Intake & Output 03/04/19 03/05/19 03/06/19 03/07/19 23:59 23:59 23:59 23:59 Intake Total 2700 3060.8 300 Output Total 1400 2575 350 Balance 1300 485.8 -50 Meds/Results Medications: Active Medications Generic Name Dose Route Start Last Admin Trade Name Freq PRN Reason Stop Dose Admin Hydrocodone Bitart/Acetaminophen 1 tab 03/06/19 12:22 03/07/19 03:00 [place] 5-325 Mg PO 1 tab Q3H PRN Administration Pain Rated 5 or Less Hydrocodone Bitart/Acetaminophen 1 tab 03/06/19 12:21 03/06/19 13:28 [place] 10-325 Mg PO 1 tab Q3H PRN Administration Pain Rated 6 or Greater Amlodipine Besylate 10 mg 03/06/19 09:00 03/06/19 12:42 Norvasc PO Not Given QAM LORETTA Bupropion HCl 300 mg 03/06/19 09:00 03/06/19 12:45 Wellbutrin Xl (24 Hr) PO 300 mg QAM LORETTA Administration Carbidopa/Levodopa 2 tablet 03/07/19 00:00 03/07/19 06:43 Sinemet 25/100 Mg PO 2 tablet Q6HR LORETTA Administration Clonidine HCl 0.1 mg 03/06/19 09:00 03/07/19 02:13 Catapres PO Not Given Q12HR LORETTA Escitalopram Oxalate 20 mg 03/06/19 21:00 03/06/19 22:39 Lexapro PO 20 mg HS LORETTA Administration Folic Acid 5 mg 03/06/19 09:00 03/06/19 12:55 Folic Acid PO Not Given DAILY LORETTA Hydrochlorothiazide 12.5 mg 03/06/19 09:00 03/06/19 12:47 Hydrochlorothiazide PO 12.5 mg QAM LORETTA Administration Dextrose/Lactated Ringer's 1,000 mls @ 125 mls/hr 03/05/19 17:41 03/06/19 11:02 Dextrose 5%/Lactated Ringers IV CONT 125 mls/hr .Q8H LORETTA Administration Fentanyl Citrate 600 mcg in 30 mls @ 0.5 mls/hr 03/05/19 17:41 03/06/19 13:30 Fentanyl 20 Mcg/Ml Product Safety Officer IV CONT Infused .Q24H PRN Titration ALIGNER BARREL AND RECEIVER Management Protocol 10 MCG/HR Ibuprofen 600 mg 03/05/19 17:41 Motrin PO Q6H PRN Cramping Ketorolac Tromethamine 30 mg 03/05/19 17:41 03/06/19 16:52 Toradol Inj IV PUSH 03/10/19 17:
[2019-03-07] MEDS: buPROPion HCL XL (24 HR) 150 MG TABCR 300 MG PO (10:05)
[2019-03-07 21:39] VITALS: BP 126/67; PULSE 87; RESP 18; TEMP 37.2; O2SAT 99
[2019-03-07] MEDS: ESCITALOPRAM OXALATE 10 MG TABLET 20 MG PO (21:50)
[2019-03-07] MEDS: MIRTAZAPINE 15 MG TABLET PO (21:50)
[2019-03-07] MEDS: SIMETHICONE 80 MG TAB.CHEW PO (22:00)
[2019-03-07] MEDS: DOCUSATE SODIUM 100 MG CAPSULE PO (22:00)
[2019-03-08] MEDS: PROMETHAZINE HCL 25 MG TABLET PO ×2 (05:35→09:09)
--- NOTE | 2019-03-08 07:23 | PM.GYNPNOP ---
MANAGER APPLICATION - A/P Postoperative Procedures: Procedures Operation Date: 03/05/19 13:30 Actual Procedures Side Surgeon p Diagnostic Laparoscopy,Open Laparotomy, Total Abdomnial Hysterectomy with Bilateral Salpingo-Oophorectomy Not Applicable Liz Whitlock MD Postoperative day: 3 Postoperative status: doing well Postoperative plan: discharge Time Spent With Patient Time: Total time spent is greater than 50% in coordination of care (as documented) at patient's floor/unit and/or counseling patient: Time with patient: less than 15 minutes MANAGER APPLICATION- PN:Subj Post-Op Subjective Date/time seen: 03/08/19 07:23 Interval history: Only up to bedside commode. Refused incentive spirometry. c/o gas pains Subjective: patient reports feeling better, pain is well controlled and patient is tolerating oral intake Exam Narrative: Exam Narrative: Inc c/d/i abdomen soft, nt MANAGER APPLICATION - PN: Obj Data Vital Signs Vital Signs: Vital Signs - 24 hr 03/07/19 07:30 03/07/19 21:39 Temperature 99.2 F 98.9 F Pulse Rate 84 87 Respiratory Rate 16 18 Blood Pressure 125/67 126/67 Pulse Oximetry 97 99 Intake/Output Intake/Output: Intake & Output 03/05/19 03/06/19 03/07/19 03/08/19 23:59 23:59 23:59 23:59 Intake Total 2700 3060.8 300 Output Total 1400 2575 1000 Balance 1300 485.8 -700 Meds/Results Medications: Active Medications Generic Name Dose Route Start Last Admin Trade Name Freq PRN Reason Stop Dose Admin Hydrocodone Bitart/Acetaminophen 1 tab 03/06/19 12:22 03/08/19 06:06 [place] 5-325 Mg PO 1 tab Q3H PRN Administration Pain Rated 5 or Less Hydrocodone Bitart/Acetaminophen 1 tab 03/06/19 12:21 03/06/19 13:28 [place] 10-325 Mg PO 1 tab Q3H PRN Administration Pain Rated 6 or Greater Amlodipine Besylate 10 mg 03/06/19 09:00 03/07/19 12:18 Norvasc PO Not Given QAM LORETTA Bupropion HCl 300 mg 03/06/19 09:00 03/07/19 10:05 Wellbutrin Xl (24 Hr) PO 300 mg QAM LORETTA Administration Carbidopa/Levodopa 2 tablet 03/07/19 00:00 03/08/19 06:32 Sinemet 25/100 Mg PO Not Given Q6HR [facility] Clonidine HCl 0.1 mg 03/06/19 09:00 03/07/19 12:18 Catapres PO Not Given Q12HR [facility] Docusate Sodium 100 mg 03/07/19 21:30 03/07/19 22:00 Colace Cap PO 100 mg Q12H PRN Administration Constipation Escitalopram Oxalate 20 mg 03/06/19 21:00 03/07/19 21:50 Lexapro PO 20 mg HS LORETTA Administration Folic Acid 5 mg 03/06/19 09:00 03/07/19 12:18 Folic Acid PO Not Given DAILY [facility] Hydrochlorothiazide 12.5 mg 03/06/19 09:00 03/07/19 12:18 Hydrochlorothiazide PO Not Given QAM [facility] Dextrose/Lactated Ringer's 1,000 mls @ 125 mls/hr 03/05/19 17:41 03/06/19 11:02 Dextrose 5%/Lactated Ringers IV CONT 125 mls/hr .Q8H LORETTA Administration Fentanyl Citrate 600 mcg in 30 mls @ 0.5 mls/hr 03/05/19 17:41 03/06/19 13:30 Fentanyl 20 Mcg/Ml Mixer Whipped Topping IV CONT Infused .Q24H PRN Titration IRRIGATOR VALVE PIPE Management Protocol 10 MCG/HR Ibuprofen 600 mg 03/05/19 17:41 Motrin PO Q6H PRN Cramping Ketorolac Tromethamine 30 mg 03/05/19 17:41 03/06/19 16:52 Toradol Inj IV PUSH 03/10/19 17:42 30 mg Q6H PRN Administration Pain Rated 4-6 Mirtazapine 15 mg 03/06/19 21:00 03/07/19 21:50 Remeron PO 15 mg HS [facility] Administration Naloxone HCl 0.1 mg 03/05/19 17:41 Narcan IV PUSH Q2M PRN Respiratory rate less than 10 Ondansetron HCl 4 mg 03/05/19 17:41 03/07/19 04:37 Zofran Inj IV PUSH 4 mg Q6H PRN Administration Nausea Promethazine HCl 25 mg 03/06/19 11:37 03/08/19 05:35 Phenergan Tab PO 25 mg Q4H PRN Administration Nausea And Vomiting Propranolol HCl 40 mg 03/06/19 21:00 03/07/19 09:00 Inderal PO Not Given Q12HR LORETAT Propranolol HCl 20 mg 03/06/19 21:00 03/07/19 09:00 Inderal PO Not Given Q12HR LORETTA Ropinirole HCl 2 mg 03/06/19 14:00 03/08/19 06:03
[2019-03-08 08:00] VITALS: BP 141/83; PULSE 69; RESP 16; TEMP 37.7; O2SAT 96
[2019-03-08] MEDS: DOCUSATE SODIUM 100 MG CAPSULE PO (09:46)
[2019-03-08] MEDS: IBUPROFEN 600 MG TABLET PO (09:47)
[2019-03-08] MEDS: SIMETHICONE 80 MG TAB.CHEW PO (09:48)
[2019-03-08] MEDS: buPROPion HCL XL (24 HR) 150 MG TABCR 300 MG PO (09:48)
[2019-03-08] MEDS: CLONIDINE HCL 0.1 MG TABLET PO (09:49)
== END 2019-03-08 15:10 | disposition home or self-care (01) | DRG 513 ==
LOC: ANHED 12:19 → ANHSURGERY 12:38 → ANHOB2 03-06 03:00 → ANHSURGERY 04-22 20:50 → ANHOB2 04-22 20:51
PROVIDERS: Admitting Provider Obstetrics & Gynecology Gynecology; Emergency Provider Emergency Medicine; PCP Emergency Medicine; Visit Provider Obstetrics & Gynecology Gynecology
PROC: 0UT90ZZ Resection of Uterus, Open Approach (ICD-10-PCS; CPT 49320; principal; 2019-03-05 13:30)
DX: N85.8 Other specified noninflammatory disorders of uterus (principal); K66.1 Hemoperitoneum; I10 Essential (primary) hypertension; D50.9 Iron deficiency anemia, unspecified; G20 Parkinson's disease; Z53.31 Laparoscopic surgical procedure converted to open procedure
CPT/HCPCS: 36415; 51701; 74177; 80053; 81001; 81025; 82728; 83690; 84466; 85025; 85027; 86850; 86900; 86901; 88307; 88309; 88342; 96361; 96374; 96375; 96376; 99199; 99285; A9270; J0330; J0690; J1100; J1170; J1885; J2060; J2250; J2405; J2704; J2710; J3010; J7030; J7120; J7121; Q9967

== ENCOUNTER 2019-03-17 17:51 | Inpatient (IN) | payer MEDICARE, OTHER, MEDICAID, SELFPAY ==
[2019-03-17] VITALS (7 sets, daily range): BP systolic 120–147; BP diastolic 80–99; PULSE 80–88; RESP 15–24; TEMP 37.1–37.2; O2SAT 97–100
--- NOTE | ~2019-03-17 | CT_ITS ---
EXAMINATION: CT abdomen pelvis wo con DATE: 03/18/2019 00:30 INDICATION: Abdominal pain. TECHNIQUE: Computed tomography (CT) of the abdomen and pelvis was performed without intravenous contr ast. Automated exposure control and iterative reconstruction technique were employed. The dose-length product was 1024.42 mGy-cm. COMPARISON: CT abdomen and pelvis 03/17/2019 FINDINGS: The visualized portions of the lung bases demonstrate mild atelectasis. Calcified right gia g nodules are consistent with old granulomatous disease. No pleural effusion. The heart size is lenin l. No pericardial effusion. The liver, gallbladder, spleen, pancreas, adrenal glands, and kidneys are normal. There are no dilated loops of bowel. The appendix is normal. There is a small volume of pelv ic ascites measuring greater than simple fluid in attenuation with hematocrit level, consistent with hemoperitoneum. There are no pathologically enlarged lymph nodes. There is a 14.3 x 3.8 x 5.6 cm subc utaneous fluid collection in the anterior pelvis. There is a focus of subcutaneous gas in anterior ab dominal wall, consistent with recent surgery. There is severe lower lumbar spondylosis. IMPRESSION: 1. Unchanged subcutaneous fluid collection in the anterior pelvis, which may be a seroma or subacute hematoma. 2. Unchanged small volume of pelvic hemoperitoneum. Reviewed, dictated and finalized at location A. HE OPERATOR
--- NOTE | ~2019-03-17 | CT_ITS ---
EXAMINATION: CT abdomen pelvis w con DATE: 03/17/2019 21:52 INDICATION: Abdominal pain TECHNIQUE: Computed tomography (CT) of the abdomen and pelvis was performed with 100 cc Omnipaque 350 intravenous contrast. The dose-length product was 760.37 mGy-cm. Automated exposure control and iter ative reconstruction technique were employed. COMPARISON: CT dated 03/05/2019 FINDINGS: Lung bases are unremarkable. Heart size normal. No pleural or pericardial effusion. There a re surgical changes in the anterior abdominal wall including punctate. Umbilical gas as well as an el liptical fluid collection in the lower anterior abdominal wall measuring 15.1 cm transverse x3.5 cm A P x6 cm craniocaudal, most likely postoperative seroma. There appears to be interval resection of the uterus. There is free fluid in the pelvis. No definitive walled off fluid collection to suggest absc ess. The liver, spleen, pancreas, adrenal glands and kidneys are unremarkable. There are degenerative castillo ges at L5-S1. No acute osseous abnormality. IMPRESSION: 1. Elliptical fluid collection lower anterior abdominal wall below the umbilicus, most likely postope rative seroma. Infection less favored. 2: Moderate fluid in the pelvis with defined right lateral wall, most likely postoperative, although developing abscess not excluded. 3: There are interval changes compatible with hysterectomy since 03/05/2019 exam. Reviewed, dictated and finalized at location A. MATOR LUMBER IMPRESSION: 1. Elliptical fluid collection lower anterior abdominal wall below the umbilicu s, most likely postoperative seroma. Infection less favored. 2: Moderate fluid in the pelvis with defined right lateral wall, most likely po stoperative, although developing abscess not excluded. 3: There are interval changes compatible with hysterectomy since 03/05/2019 exam .
--- NOTE | ~2019-03-17 | CT_ITS ---
EXAMINATION: CT guide absc cath placement DATE: 03/18/2019 11:37 INDICATION: TECHNIQUE: The procedure including the risks, benefits, and alternatives was discussed with the patie nt. Risks discussed included bleeding and infection. The patient understood the risks and benefits an d agreed to proceed. The patient was confirmed to be receiving appropriate antibiotic coverage. The skin overlying the abdomen was prepped and draped in usual sterile fashion. Anesthetic was administe red with 1% lidocaine subcutaneously. An 18 gauge trochar needle was inserted into the subcutaneous a bdominal abscess with CT guidance. The needle was exchanged over a wire for 6 Scottish, 8 Scottish, and 9 Scottish dilators and then for an 8.5 Scottish pigtail catheter. The catheter was stitched to the skin, and a sterile dressing was applied. The mA was adjusted according to patient size. Iterative reconstr uction technique was employed. The dose-length product was 149.50 mGy-cm. There were no immediate com plications. FINDINGS: CT images demonstrate the catheter within the subcutaneous fluid collection in anterior abd ominal wall. IMPRESSION: 1. Successful CT-guided abscess drainage. At the end of the procedure, a small volume of blackish, vi scus old blood was draining from the catheter. No fluid was sent for cultures. Reviewed, dictated and finalized at location A. LER MACHINE OPERATOR IMPRESSION: 1. Successful CT-guided abscess drainage. At the end of the procedure, a small volume of blackish, viscus old blood was draining from the catheter. No fluid w as sent for cultures.
[2019-03-17 19:34] LABS: Basophils Absolute Auto 0.1 K/mm3 (0.0-0.1); Basophils Percent Auto 0.9 % (0.2-1.2); Eosinophils Absolute Auto 0.2 K/mm3 (0-0.3); Eosinophils Percent Auto 2.3 % (0-4.4); Hematocrit 33.2 % (37.0-47.0); Hemoglobin 10.5 g/dL (12.0-15.0); Immature Granulocyte Absolute 0.07 K/mm3 (0.00-0.031); Immature Granulocyte Percent A 0.8 % (0-0.5); Lymphocytes Percent Auto 23.8 % (18.3-44.2); Mean Corpuscular HGB Conc 31.6 g/dl (32-36); Mean Corpuscular Hemoglobin 30.2 pg (26-34); Mean Corpuscular Volume 95.4 fl (80-100); Mean Platelet Volume 9.3 fl (7.4-10.4); Monocytes Absolute Auto 0.4 K/mm3 (0.1-0.6); Monocytes Percent Auto 4.9 % (2.6-8.5); Neutrophils Percent Auto 67.3 % (45.5-73.1); Platelet Count Result 508 k/mm3 (150-375); Red Blood Count 3.48 M/mm3 (4.2-5.4); Red Cell Distribution Width 14.4 % (11.5-14.5); White Blood Count 8.8 K/mm3 (4.5-10.0)
[2019-03-17 19:46] LABS: Alanine Aminotransferase 15 U/L (4-35); Albumin Level 4.3 g/dL (3.5-5.1); Alkaline Phosphatase 137 U/L (38-126); Aspartate Amino Transferase 27 U/L (14-36); Bilirubin,Total 0.2 mg/dL (0.2-1.3); Blood Urea Nitrogen 9 mg/dL (7-17); Calcium 9.9 mg/dL (8.4-10.2); Carbon Dioxide 25 mmol/L (22-30); Chloride 102 mmol/L (98-107); Estimated CRCL calculation 70 ml/min; Estimated Glomerular Filt Rate > 60; Glucose 99 mg/dL (65-105); Lipase 101 U/L (23-300); Potassium 3.5 mmol/L (3.4-5.0); Sodium 138 mmol/L (137-145)
--- NOTE | 2019-03-17 20:25 | PC.NURSE ---
asked pt to urinate pt states she does not think she can void at this time.
--- NOTE | 2019-03-17 20:53 | ED.GENADULT ---
HPI - General Adult General Chief complaint: Unspecified Stated complaint: BLEEDING FROM HYST SITE/03/05/19 Time Seen by Provider: 03/17/19 20:49 Source: patient Mode of arrival: ambulatory Limitations: no limitations History of Present Illness HPI narrative: The pt is a 53 y/o female who presents to the ED c/o post-surgical complications onset approximately 2 weeks ago. Pt states that she suffered a perforated uterus, and had a hysterectomy performed on 03/05/[address] Whitlock. Pt states that she has experienced N/V, constipation, 5-6/10 ABD pain, ABD distension, decreased urine output, and bruising on her ABD secondary to her stitches breaking. Pt notes that her pain worsens while lying down. Pt states that Dr. Whitlock told her to come to the ED after calling. MD complaint: Post-surgical complications Onset (ago): week(s) (Approximately 2) Location: abdomen Severity scale (1-10): 5 (or 6) Quality: other (Pressure) Exacerbating factors: other (Laying down) Associated symptoms: nausea/vomiting and other (ABD pain, constipation, ABD distension, decreased urine output, and bruising on her ABD secondary to her stitches breaking) Related Data Home Medications Medication Instructions Recorded Confirmed amlodipine 10 mg PO DAILY 01/18/19 03/05/19 bupropion HCl 300 mg PO DAILY 01/18/19 03/05/19 carbidopa-levodopa 2 tablet PO QID 01/18/19 03/05/19 clonidine HCl 0.1 mg PO BID 01/18/19 03/05/19 diazepam 10 mg PO TID PRN 01/18/19 03/05/19 escitalopram oxalate 20 mg PO DAILY 01/18/19 03/05/19 folic acid 5 mg PO DAILY 01/18/19 03/05/19 hydrochlorothiazide 12.5 mg PO BID 01/18/19 03/05/19 hydrocodone-acetaminophen 1 tablet PO BID PRN 01/18/19 03/05/19 mirtazapine 15 mg PO QPM 01/18/19 03/05/19 propranolol 60 mg PO BID 01/18/19 03/05/19 ropinirole 2 mg PO TID 01/18/19 03/05/19 Allergies Allergy/AdvReac Type Severity Reaction Status Date / Time codeine Allergy Unknown Nausea and Verified 03/05/19 10:15 Vomiting Review of Systems Review of Systems: Narrative: Review of Systems Gastrointestinal: Positive for nausea, vomiting, abdominal pain, constipation, and abdominal distension. Genitourinary: Positive for decreased urine output. Skin: Positive for bruising on her ABD secondary to her stitches breaking. All systems reviewed & are unremarkable except as noted in HPI and below PMFSH Past Medical History Medical History (Updated 03/18/19 @ 00:27 by Shannon Brink MD) Hemoperitoneum HTN (hypertension) Iron deficiency anemia sees hematology and receives iron infusions (normal spontaneous vaginal delivery) x 5 Parkinson disease patient stated this was due to her severe iron storage problem and is a parkinson like disease Uterine perforation 2019 following uterine ablation with Dr. Gaby Forbes at [facility], occurred with intra abdominal bleeding and transferred to [place] Surgical History Surgical History (Updated 03/17/19 @ 20:59 by Justice Molina) H/O prior ablation treatment 2019, uterine ablation S/P [facility] Social History Social History Smoking status: Never smoker Alcohol intake: current Substance use: never Substance use type: does not use Gender identity (if verbalized by the patient): Female Spiritual care concerns: No Comments PCP: Dr. Maciel OCEAN FORWARDER: Dr. Whitlock Exam Narrative: Exam Narrative: Constitutional: Appears well-developed. No distress. HENT: Head: Normocephalic. Nose: Nose normal. Mouth/Throat: Oropharynx is clear and moist. Eyes: Conjunctiva are normal. Neck: Normal range of motion. Neck supple. Cardiovascular: Normal rate and regular rhythm. Pulmonary/Chest: Effort normal and breath sounds normal. Abdominal: Soft. There is generalized tenderness. Musculoskeletal: Normal range of motion. No edema. Neurological: Alert and oriented to person, place, and time. Skin: Skin is warm. No pallor. Wo
[2019-03-17] MEDS: ONDANSETRON INJ 4 MG/2 ML VIAL IV PUSH (21:25)
[2019-03-17] MEDS: SODIUM CHLORIDE 0.9% IV 1,000 ML 999 ML IV CONT (21:27)
--- NOTE | 2019-03-17 21:45 | PC.NURSE ---
pt asked to urinate pt states she is in too much pain
--- NOTE | 2019-03-17 22:00 | PC.NURSE ---
pt unable to void at this time.
--- NOTE | 2019-03-17 23:36 | PC.NURSE ---
pt unable to provided urine sample. Floor nurse notified.
--- NOTE | 2019-03-17 23:50 | ADMGEN ---
This patient, Cande Julian, was admitted to 2 Medical Room 245-01 @ 23:45. Patient/family oriented to hospital policies and general routines including ID bracelet, bed and alarms, visiting hours, pain management, procedures, bathroom and other care routines, personal items, smoking policy, room service/diet, and visiting hours. Valuables list has been completed. Information on how to activate the Rapid Response Team has been discussed. Patient/Family are encouraged to report perceived risks to care and to ask questions if they do not understand what they are told or what they should do.
[2019-03-18] VITALS (17 sets, daily range): BP systolic 104–135; BP diastolic 59–93; PULSE 62–93; RESP 14–118; TEMP 36.1–36.8; O2SAT 91–100; BMI 28.3
[2019-03-18 00:04] LABS: Glucose Point of Care 94 (65-105)
--- NOTE | 2019-03-18 00:24 | PM.EVENT ---
Event Note Event Note Event Note: Called to bedside via Rapid Response This is a 53 year old s/p hysterectomy on 03/05/2019 who tonight was admitted to MARKETING OUTREACH COORDINATOR service for postsurgical bleeding from surgical site and tonight the nursing staff called a rapid response when the patient almost passed out tonight. On my arrival to bedside the patient is complaining of severe intractable abdominal pain with associated shortness of breath. The patient's friend who is at the bedside states that the patient's abdomen is now much more distended than it was earlier. On my exam the patient has diffuse abdominal pain and her abdomen is distended++ She was placed on oxygen as she was saturating in the high 80s on room air. I gave the patient a dose of fentanyl for her severe pain. STAT CT abd/pelvis was ordered as well as STAT CBC. I have called the MARKETING OUTREACH COORDINATOR attending physician Dr. Espinal and discussed the case in detail with her and updated her with the patient's current clinical condition. She verbalized to me that she would be coming in to see the patient tonight.
[2019-03-18] MEDS: ceFAZolin 2 GM/D5W 50 ML 2 GM/50 ML BAG IVPB ×3 (00:30→21:52)
--- NOTE | 2019-03-18 01:13 | PM.IMHP ---
H&P: HPI History of Present Illness Chief complaint: abdominal, pelvic and abdominal Narrative: Cande Julian is a 53 year old female who is admitted for abdominal pain, N/V. Pt had FRANSISCO/BSO on 03/05/[address] Whitlock.Pt saw her for post op on 03/14/2019 .Per pt had fever of 100.8 F on 03/15/2018 .Per pt she is been vomiting since she was discharged home after her surgery and has lost 22 lbs since surgery as per her friend. Review of Systems Constitutional: Constitutional: Reports fatigue and Reports lethargy Cardiovascular: Cardiovascular: Reports no additional cardiovascular complaints Respiratory: Respiratory: Reports no additional respiratory complaints Gastrointestinal: Gastrointestinal: Reports abdominal pain, Reports bloating, Reports nausea and Reports vomiting Genitourinary: Genitourinary: Reports urinary hesitancy PMFSH Past Medical History Medical History (Updated 03/18/19 @ 01:22 by Luna Espinal MD) Hemoperitoneum HTN (hypertension) Iron deficiency anemia sees hematology and receives iron infusions (normal spontaneous vaginal delivery) x 5 Parkinson disease patient stated this was due to her severe iron storage problem and is a parkinson like disease Uterine perforation 2019 following uterine ablation with Dr. Gaby Forbes at [facility], occurred with intra abdominal bleeding and transferred to [place] Surgical History Surgical History (Updated 03/17/19 @ 20:59 by Justice Molina) H/O prior ablation treatment 2018, uterine ablation S/P FRANSISCO-BSO Social History Social History Smoking status: Never smoker Alcohol intake: current Substance use: never Substance use type: does not use Gender identity (if verbalized by the patient): Female Spiritual care concerns: No Meds Home Medications and Allergies Home Medications Medication Instructions Recorded Confirmed Type amlodipine 10 mg PO DAILY 01/18/19 03/18/19 History bupropion HCl 300 mg PO DAILY 01/18/19 03/18/19 History carbidopa-levodopa 2 tablet PO QID 01/18/19 03/18/19 History clonidine HCl 0.1 mg PO BID 01/18/19 03/18/19 History diazepam 10 mg PO TID PRN 01/18/19 03/18/19 History escitalopram oxalate 20 mg PO DAILY 01/18/19 03/18/19 History folic acid 5 mg PO DAILY 01/18/19 03/18/19 History hydrochlorothiazide 12.5 mg PO BID 01/18/19 03/18/19 History hydrocodone-acetaminophen 1 tablet PO BID PRN 01/18/19 03/18/19 History mirtazapine 15 mg PO QPM 01/18/19 03/18/19 History propranolol 60 mg PO BID 01/18/19 03/18/19 History ropinirole 2 mg PO TID 01/18/19 03/18/19 History hydrocodone-acetaminophen 1 tablet PO Q3H PRN #20 tablet 03/08/19 03/18/19 Rx Allergies Allergy/AdvReac Type Severity Reaction Status Date / Time codeine Allergy Unknown Nausea and Verified 03/05/19 10:15 Vomiting Vital Signs Vital Signs - 24 hr 03/17/19 19:19 03/17/19 20:28 03/17/19 21:00 Temperature 37.2 C 37.1 C Pulse Rate 80 85 81 Respiratory Rate 18 20 17 Blood Pressure 122/80 125/90 123/92 H Pulse Oximetry 100 99 100 03/17/19 22:50 03/17/19 23:16 03/17/19 23:20 Temperature 37.1 C Pulse Rate 85 86 Respiratory Rate 22 H 24 H Blood Pressure 120/82 147/92 H Pulse Oximetry 100 100 03/17/19 23:37 03/18/19 00:15 03/18/19 00:16 Temperature 36.8 C 36.8 C Pulse Rate 88 80 87 Respiratory Rate 15 118 H 18 Blood Pressure 131/82 129/76 135/88 Pulse Oximetry 97 95 91 03/18/19 00:30 Temperature Pulse Rate 92 Respiratory Rate 22 H Blood Pressure 125/92 H Pulse Oximetry 99 Exam Const: General: no acute distress Resp: Auscultation: clear to auscultation bilaterally Cardio: Rate: regular rate Rhythm: regular rhythm GI: Inspection: incision (C/D/I) GI Palp: Yes Tenderness to palpation present (GI) (around incision) and Yes Other GI palpation findings present Auscultation: normal bowel sounds H&P: Results Labs Labs: Short CBC
[2019-03-18 01:20] LABS: Hematocrit 30.1 % (37.0-47.0); Hemoglobin 9.8 g/dL (12.0-15.0); Mean Corpuscular HGB Conc 32.6 g/dl (32-36); Mean Corpuscular Volume 95.3 fl (80-100); Mean Platelet Volume 9.4 fl (7.4-10.4); Platelet Count Result 475 k/mm3 (150-375); Red Blood Count 3.16 M/mm3 (4.2-5.4); Red Cell Distribution Width 14.2 % (11.5-14.5); White Blood Count 7.8 K/mm3 (4.5-10.0)
[2019-03-18 01:46] LABS: Add Urine Microscopic? YES; Appearance Urine Clear (Clear); Bilirubin Urine Negative (Negative); Blood Urine 2+ (Negative); Color Urine Straw (Yellow); Glucose Urine UA Negative (Negative); Ketones Urine Negative (Negative); Leukocyte Esterase Ur Trace LEU/UL (Negative); Mucus Urine Rare /lpf; Nitrate Urine Negative (Negative); Protein Urine Negative (Negative); RBC Urine 0-2 /hpf (0-2); Squamous Epithelial Cell Urine Few /hpf (Few); Urobilinogen Urine Negative mg/dL (<2.0)
[2019-03-18 01:48] LABS: Specific Grav Ur 1.034 (1.001-1.035)
[2019-03-18] MEDS: HYDROMORPHONE HCL 1 MG/ML INJ IV PUSH ×3 (01:52→08:45)
--- NOTE | 2019-03-18 10:30 | PC.NURSE ---
Patient upset and stated my pain meds are late and I need you to keep up on the schedule. Administered a dose of Dilaudid and informed patient that her pain meds are scheduled as Q3H PRN and explained to her the meaning of PRN. Patient was writhing around in bed and was inconsolable. The patients mother and friend were very upset with staff about pain medication schedule and were demanding that the patient be taken down to radiology for her CT guided drain placement. I called radiology for an ETA and the department was unable to provide and ETA due to ED patient needs, but were going to perform the procedure as soon as possible. Reported back to patient about radiology and the patient said I just called down to radiology and they said the radiologist wasn't even here yet. Are you lying to me? What time do they even get here? Am I just supposed to wait for every single patient in the ER to be seen before me. Don't I come first? Explained to patient that the radiology department determines in which order patients are seen. After leaving patients room called Dr. Espinal and explained the situation and that the patient was requesting more pain medication. Dr. Espinal added morphine, protonix, dulcolax suppository, and instructed to insert Rodriguez to relieve abdominal pressure. Reported back to patient and found patient sitting on the edge of the bed moaning in pain. Recommended patient lay back down in bed to relieve pressure on abdomen and for her safety. Patient stated ?My lips are numb; I feel like I?m going to pass out.? Took vital set, vitals were stable. Inserted Rodriguez and encouraged dulcolax suppository and patient refused. Offered morphine and patient refused saying ?that stuff doesn?t work for me, get me something else.? Called Dr. Espinal to request a change in pain medication. started fluids and changed her Dilaudid dose from Q3H to Q2H PRN. At this time, radiology came to picker box operator the patient before next dose of Dilaudid was due. Dr. Espinal called back discontinued current dose of Dilaudid and ordered a ASSEMBLER [employer]. Patient stable for transport to radiology.
--- NOTE | 2019-03-18 12:00 | PC.NURSE ---
Patient returned from radiology and IV access was unusable. Charge nurse Deisi Aguilera attempted IV access without success. Called Dr. Espinal to request a midline be placed to advance the patients diet to clear liquids. An ICU nurse came to place IV until midline could be placed. Gave PO pain meds until IV access was successful.
[2019-03-18] MEDS: PANTOPRAZOLE SODIUM IV 40 MG VIAL IV PUSH (15:24)
[2019-03-18 15:30] LABS: Alanine Aminotransferase 12 U/L (4-35); Albumin Level 3.5 g/dL (3.5-5.1); Alkaline Phosphatase 112 U/L (38-126); Aspartate Amino Transferase 21 U/L (14-36); Bilirubin,Total 0.3 mg/dL (0.2-1.3); Blood Urea Nitrogen 7 mg/dL (7-17); Calcium 9.1 mg/dL (8.4-10.2); Carbon Dioxide 27 mmol/L (22-30); Chloride 103 mmol/L (98-107); Estimated CRCL calculation 90 ml/min; Estimated Glomerular Filt Rate > 60; Glucose 94 mg/dL (65-105); Potassium 3.2 mmol/L (3.4-5.0); Sodium 138 mmol/L (137-145)
[2019-03-18] MEDS: PROMETHAZINE HCL 25 MG/ML AMPUL IV PUSH (15:31)
--- NOTE | 2019-03-18 16:18 | PC.NURSE ---
171Apr MAMMOGRAPHY SUPERVISOR charting continued not started. Pt is arousable and alert. O2 sat 96%.
--- NOTE | 2019-03-18 17:18 | PC.NURSE ---
1718 MAR-VICE PRESIDENT UNDERWRITING intervention: VICE PRESIDENT UNDERWRITING was continued not started, no other charting option available. Patient sleeping, alert and arousable. O2 sat 96%.
--- NOTE | 2019-03-18 18:18 | PC.NURSE ---
1817-FIRE INFORMATION OFFICER intervention: FIRE INFORMATION OFFICER was continued not started, no other charting option available. Patient sleeping, alert and arousable. O2 sat 95%.
--- NOTE | 2019-03-18 18:44 | PC.NURSE ---
1618 MAR-CHEMICAL MILLING PROCESSOR intervention: CHEMICAL MILLING PROCESSOR was continued not started, no other charting option available. Patient sleeping, alert and arousable. O2 sat 95%.
[2019-03-18] MEDS: BISACODYL 10 MG SUPPOSITORY RECTAL (19:32)
[2019-03-18] MEDS: DEXTROSE 5%/0.45% SOD CHL 1,000 ML 125 ML IV CONT (21:50)
[2019-03-19] VITALS (15 sets, daily range): BP systolic 94–117; BP diastolic 54–72; PULSE 58–75; RESP 14–18; TEMP 35.9–36.4; O2SAT 96–100
[2019-03-19] MEDS: ceFAZolin 2 GM/D5W 50 ML 2 GM/50 ML BAG IVPB ×3 (04:12→19:04)
[2019-03-19] MEDS: DEXTROSE 5%/0.45% SOD CHL 1,000 ML 125 ML IV CONT ×4 (05:23→23:00)
[2019-03-19 06:04] LABS: Hematocrit 27.4 % (37.0-47.0); Hemoglobin 8.6 g/dL (12.0-15.0); Mean Corpuscular HGB Conc 31.4 g/dl (32-36); Mean Corpuscular Hemoglobin 30.7 pg (26-34); Mean Corpuscular Volume 97.9 fl (80-100); Mean Platelet Volume 9.5 fl (7.4-10.4); Platelet Count Result 365 k/mm3 (150-375); White Blood Count 5.9 K/mm3 (4.5-10.0)
--- NOTE | 2019-03-19 11:12 | PM.GYNPNOP ---
KOSHER INSPECTOR - A/P Postoperative Procedures: HD#2 Will D/C jeffrey Advance diet as tolerated Once tolerating PO, will D/C HOT TAR ROOFER pump and IVF and switch to oral pain meds Encourage ambulation. Continue IV antibiotics. Postoperative status: doing well Postoperative plan: other (will D/C jeffrey.) Time Spent With Patient Time: Total time spent is greater than 50% in coordination of care (as documented) at patient's floor/unit and/or counseling patient: Time with patient: 15 - 25 minutes KOSHER INSPECTOR- PN:Subj Post-Op Subjective Date/time seen: 03/19/19 11:12 Subjective: patient reports feeling better and pain is well controlled Review of Systems Constitutional: Constitutional: Reports no additional constitutional complaints Cardiovascular: Cardiovascular: Reports no additional cardiovascular complaints Respiratory: Respiratory: Reports no additional respiratory complaints Gastrointestinal: Gastrointestinal: Reports no additional gastrointestinal complaints Exam Const: General: comfortable, no acute distress, alert and awake Resp: Auscultation: clear to auscultation bilaterally Cardio: Rate: regular rate Rhythm: regular rhythm GI: Auscultation: normal bowel sounds : Other: incision: C/D/I Drainage: 50 ml/24 hr, dark blood Urinary Catheter: Urinary Catheter: patent and draining and urine clear KOSHER INSPECTOR - PN: Obj Data Vital Signs Vital Signs: Vital Signs - 24 hr 03/18/19 14:00 03/18/19 14:45 03/18/19 14:46 Temperature 36.8 C Pulse Rate 62 79 68 Respiratory Rate 18 18 19 Blood Pressure 104/60 117/80 107/67 Pulse Oximetry 99 97 97 03/18/19 15:18 03/18/19 16:18 03/18/19 17:18 Temperature Pulse Rate Respiratory Rate 16 14 14 Blood Pressure Pulse Oximetry 95 95 96 03/18/19 18:48 03/18/19 19:00 03/18/19 21:00 Temperature Pulse Rate Respiratory Rate 14 20 20 Blood Pressure Pulse Oximetry 96 100 100 03/18/19 21:04 03/18/19 22:00 03/18/19 23:00 Temperature 36.1 C L Pulse Rate 68 Respiratory Rate 21 H 18 Blood Pressure 123/75 Pulse Oximetry 100 100 100 03/19/19 01:00 03/19/19 03:00 03/19/19 05:00 Temperature 36.4 C L 35.9 C L 36.1 C L Pulse Rate 70 67 58 L Respiratory Rate 18 18 16 Blood Pressure 117/72 101/54 L 94/57 L Pulse Oximetry 100 98 97 03/19/19 05:30 03/19/19 06:59 Temperature 36.2 C L Pulse Rate 63 Respiratory Rate 18 16 Blood Pressure 102/59 L Pulse Oximetry 98 98 Intake/Output Intake/Output: Intake & Output 03/16/19 03/17/19 03/18/19 03/19/19 23:59 23:59 23:59 23:59 Intake Total 6013 875 5942.7 Output Total 2009 580 Balance 1000 -1390 771.7 Meds/Results Medications: Active Medications Generic Name Dose Route Start Last Admin Trade Name Freq PRN Reason Stop Dose Admin Hydromorphone HCl 6 mg in 30 mls @ 0 mls/hr 03/18/19 10:15 03/19/19 05:35 Dilaudid 0.2 Mg/Ml [place] Actor IV CONT 0.1 mls/hr .Q0M PRN Titration HOT TAR ROOFER Management Protocol Per Protocol Dextrose/Sodium Chloride 1,000 mls @ 125 mls/hr 03/18/19 11:05 03/19/19 05:23 Dextrose 5% Sodium Chloride 0.45% IV CONT 125 mls/hr .Q8H LORETTA Administration Cefazolin Sodium 2 gm in 50 mls @ 100 mls/hr 03/18/19 20:00 03/19/19 04:40 Ancef 2 Gm/D5w 50 Ml IVPB Infused Q8H LORETTA Infusion Ondansetron HCl 4 mg 03/17/19 22:29 Zofran Inj IV PUSH Q4H PRN Nausea Oxycodone/Acetaminophen 1 tablet 03/17/19 22:28 03/19/19 00:25 Percocet 5-325 Mg PO 1 tablet Q4H PRN Administration Pain Rated 7-10 Pantoprazole Sodium 40 mg 03/19/19 09:00 Protonix PO QAM LORETTA Promethazine HCl 25 mg 03/18/19 09:57 03/18/19 15:31 Phenergan Inj IV PUSH 25 mg Q6H PRN Administration Nausea And Vomiting Radiology Results: ITS Impressions Abdomen/Pelvis CT 03/18/19 08:15 IMPRESSION: 1. Unchanged subcutaneous fluid collection in the anterior pelvis, which may be a seroma or subacute hematoma. 2. Unchanged small volume of pelvic
[2019-03-19] MEDS: PANTOPRAZOLE 40 MG TABLET PO (13:19)
[2019-03-19] MEDS: DOCUSATE SODIUM 100 MG CAPSULE PO ×2 (13:19→17:44)
[2019-03-19] MEDS: PROMETHAZINE HCL 25 MG/ML AMPUL IV PUSH (15:00)
[2019-03-19] MEDS: ONDANSETRON INJ 4 MG/2 ML VIAL IV PUSH (21:01)
[2019-03-20] VITALS (7 sets, daily range): BP systolic 86–103; BP diastolic 58–67; PULSE 68–76; RESP 12–18; TEMP 36–36.2; O2SAT 94–99
[2019-03-20] MEDS: SODIUM CHLORIDE 0.9% IV 500 ML 30 ML (02:02)
[2019-03-20] MEDS: ceFAZolin 2 GM/D5W 50 ML 2 GM/50 ML BAG IVPB (04:28)
--- NOTE | 2019-03-20 06:22 | PC.NURSE ---
BUYER GRAIN TOTAL THIS SHIFT 1.3
[2019-03-20] MEDS: DEXTROSE 5%/0.45% SOD CHL 1,000 ML 125 ML IV CONT (07:31)
[2019-03-20] MEDS: DOCUSATE SODIUM 100 MG CAPSULE PO ×2 (07:33→16:25)
[2019-03-20] MEDS: PANTOPRAZOLE 40 MG TABLET PO (07:34)
--- NOTE | 2019-03-20 08:20 | PM.GYNPNOP ---
SELF CONTAINED BEHAVIOR UNIT TEACHER - A/P Assessment and plan (1) Abdominal wall fluid collections: Code(s): R18.8 - Other ascites Status: Acute Assessment and Plan: s/p radiology drainage of old blood H/H same as on prior DC post iv hydration and stabilization drain in place with minimal drainage overnight normal WBC and afebrile throughout admission so will DC antibiotics dc jeffrey now advance diet hope to DC later today (2) Pelvic fluid collection: Code(s): R18.8 - Other ascites Status: Acute Time Spent With Patient Time: Total time spent is greater than 50% in coordination of care (as documented) at patient's floor/unit and/or counseling patient: Time with patient: 15 - 25 minutes SELF CONTAINED BEHAVIOR UNIT TEACHER- PN:Subj Post-Op Subjective Date/time seen: 03/20/19 08:20 Subjective: patient reports feeling better, pain is well controlled and patient reports nausea Exam GI: Other: soft, minimal tenderness, inc c/d/i, drain site covering dry, minimal blood in drain SELF CONTAINED BEHAVIOR UNIT TEACHER - PN: Obj Data Vital Signs Vital Signs: Vital Signs - 24 hr 03/19/19 09:00 03/19/19 11:00 03/19/19 13:00 Temperature Pulse Rate Respiratory Rate 16 14 16 Blood Pressure Pulse Oximetry 96 96 98 03/19/19 14:00 03/19/19 15:00 03/19/19 17:00 Temperature 97.5 F L Pulse Rate 75 Respiratory Rate 16 16 14 Blood Pressure 103/68 Pulse Oximetry 100 96 99 03/19/19 19:00 03/19/19 21:09 03/19/19 22:00 Temperature 96.9 F L Pulse Rate 68 Respiratory Rate 16 18 16 Blood Pressure 97/56 L Pulse Oximetry 98 98 98 03/19/19 23:25 03/20/19 02:00 03/20/19 04:20 Temperature 96.8 F L Pulse Rate 70 Respiratory Rate 18 18 18 Blood Pressure 96/58 L Pulse Oximetry 99 97 03/20/19 05:57 Temperature 97.1 F L Pulse Rate 73 Respiratory Rate 18 Blood Pressure 101/61 Pulse Oximetry 97 Intake/Output Intake/Output: Intake & Output 03/17/19 03/18/19 03/19/19 03/20/19 23:59 23:59 23:59 23:59 Intake Total 6211 141 5676.0 1750 Output Total 2009 2555 1165 Balance 1000 -1390 3105.0 585 Meds/Results Medications: Active Medications Generic Name Dose Route Start Last Admin Trade Name Freq PRN Reason Stop Dose Admin Bisacodyl 10 mg 03/19/19 11:30 Dulcolax Suppository RECTAL QAM PRN Constipation Docusate Sodium 100 mg 03/19/19 12:00 03/20/19 07:33 Colace Capsule PO 100 mg BID LORETTA Administration Ibuprofen 600 mg 03/19/19 14:34 Motrin PO Q6H PRN Pain Rated 1-3 Ondansetron HCl 4 mg 03/17/19 22:29 03/19/19 21:01 Zofran Inj IV PUSH 4 mg Q4H PRN Administration Nausea Oxycodone/Acetaminophen 1 tablet 03/17/19 22:28 03/19/19 23:01 Percocet 5-325 Mg PO 1 tablet Q4H PRN Administration Pain Rated 7-10 Pantoprazole Sodium 40 mg 03/19/19 09:00 03/20/19 07:34 Protonix PO 40 mg QAM LORETTA Administration Promethazine HCl 25 mg 03/18/19 09:57 03/19/19 15:00 Phenergan Inj IV PUSH 25 mg Q6H PRN Administration Nausea And Vomiting Radiology Results: ITS Impressions Abdomen/Pelvis CT 03/18/19 08:15 IMPRESSION: 1. Unchanged subcutaneous fluid collection in the anterior pelvis, which may be a seroma or subacute hematoma. 2. Unchanged small volume of pelvic hemoperitoneum. Catheter Placement CT 03/18/19 11:51 IMPRESSION: 1. Successful CT-guided abscess drainage. At the end of the procedure, a small volume of blackish, viscus old blood was draining from the catheter. No fluid was sent for cultures. Labs CBC & Chem 7: 03/19/19 05:41 03/18/19 15:09
--- NOTE | 2019-03-20 13:15 | PCCCNOTE ---
On 03/20/19, the student, [Jessica Erazo ], provided care and [facility] I have reviewed the student's documentation and agree with the findings.
[2019-03-21] MEDS: ONDANSETRON INJ 4 MG/2 ML VIAL IV PUSH ×2 (04:53→09:29)
[2019-03-21 06:04] VITALS: BP 119/80; PULSE 78; RESP 16; TEMP 35.9; O2SAT 100
[2019-03-21] MEDS: DOCUSATE SODIUM 100 MG CAPSULE PO ×2 (08:06→16:51)
[2019-03-21] MEDS: PANTOPRAZOLE 40 MG TABLET PO (08:06)
[2019-03-21] MEDS: polyethylene glycoL 3350 17 GM POWD.PACK PO (09:29)
[2019-03-21 09:40] VITALS: BP 129/76; PULSE 61
[2019-03-21] MEDS: FAMOTIDINE 20 MG TABLET PO (10:36)
--- NOTE | 2019-03-21 12:37 | PM.GYNPNOP ---
MANAGER APPLICATION DEVELOPMENT - A/P Assessment and plan (1) Abdominal wall fluid collections: Code(s): R18.8 - Other ascites Status: Acute Assessment and Plan: s/p drain placement with minimal drainage Main issue currently is patient's report of nausea, vomiting, and constipation Exam is benign, normal bs. Unsure of etiology of GI sx. Discussed with patient (as well as her mother and friend), recommend trying solid foods and if tolerated to dc home. If not, recommend to consult GI. Will try Reglan for nausea and potentially help stomach motility Time Spent With Patient Time: Total time spent is greater than 50% in coordination of care (as documented) at patient's floor/unit and/or counseling patient: Time with patient: 25 - 35 minutes MANAGER APPLICATION DEVELOPMENT- PN:Subj Post-Op Subjective Date/time seen: 03/21/19 12:37 Interval history: Pt still refusing to eat. States she will just throw it back up. States she wants to go home. Subjective: pain is well controlled Exam GI: Auscultation: normal bowel sounds Other: nondistended, appropriate tenderness, c/d/i incision MANAGER APPLICATION DEVELOPMENT - PN: Obj Data Vital Signs Vital Signs: Vital Signs - 24 hr 03/20/19 14:00 03/20/19 20:00 03/20/19 22:23 Temperature 97.0 F L 97.2 F L Pulse Rate 68 68 76 Respiratory Rate 12 12 16 Blood Pressure 86/64 L 103/67 Pulse Oximetry 94 94 99 03/21/19 06:04 03/21/19 09:40 Temperature 96.7 F L Pulse Rate 78 61 Respiratory Rate 16 Blood Pressure 119/80 129/76 Pulse Oximetry 100 Intake/Output Intake/Output: Intake & Output 03/18/19 03/19/19 03/20/19 03/21/19 23:59 23:59 23:59 23:59 Intake Total 620 5660.0 2428 340 Output Total 2009 5011 3183 900 Balance -1390 3105.0 -637 -560 Meds/Results Medications: Active Medications Generic Name Dose Route Start Last Admin Trade Name Freq PRN Reason Stop Dose Admin Acetaminophen 1,000 mg 03/20/19 08:19 Tylenol Tablet PO Q6H PRN Mild Pain (1-3) or Fever Bisacodyl 10 mg 03/19/19 11:30 Dulcolax Suppository RECTAL QAM PRN Constipation Docusate Sodium 100 mg 03/19/19 12:00 03/21/19 08:06 Colace Capsule PO 100 mg BID LORETTA Administration Ibuprofen 600 mg 03/19/19 14:34 Motrin PO Q6H PRN Pain Rated 1-3 Ondansetron HCl 4 mg 03/17/19 22:29 03/21/19 09:29 Zofran Inj IV PUSH 4 mg Q4H PRN Administration Nausea Oxycodone/Acetaminophen 1 tablet 03/17/19 22:28 03/21/19 09:35 Percocet 5-325 Mg PO 1 tablet Q4H PRN Administration Pain Rated 7-10 Pantoprazole Sodium 40 mg 03/19/19 09:00 03/21/19 08:06 Protonix PO 40 mg QAM LORETTA Administration Promethazine HCl 25 mg 03/18/19 09:57 03/19/19 15:00 Phenergan Inj IV PUSH 25 mg Q6H PRN Administration Nausea And Vomiting Radiology Results: ITS Impressions Abdomen/Pelvis CT 03/18/19 08:15 IMPRESSION: 1. Unchanged subcutaneous fluid collection in the anterior pelvis, which may be a seroma or subacute hematoma. 2. Unchanged small volume of pelvic hemoperitoneum. Catheter Placement CT 03/18/19 11:51 IMPRESSION: 1. Successful CT-guided abscess drainage. At the end of the procedure, a small volume of blackish, viscus old blood was draining from the catheter. No fluid was sent for cultures. Labs CBC & Chem 7: 03/19/19 05:41 03/18/19 15:09
[2019-03-21 14:00] VITALS: BP 133/68; PULSE 63; RESP 20; TEMP 36.1; O2SAT 99
[2019-03-21] MEDS: METOCLOPRAMIDE HCL 10 MG TABLET PO (14:17)
--- NOTE | 2019-03-21 16:43 | P.PNOB_ITS ---
GAS APPLIANCE ADJUSTER - A/P Time Spent With Patient Time: Total time spent is greater than 50% in coordination of care (as documente d) at patient's floor/unit and/or counseling patient: Time with patient: less than 15 minutes GAS APPLIANCE ADJUSTER- PN:Jt Post-Op Subjective Date/time seen: 03/21/19 16:43 Interval history: Per RN patient ate and kept down small lunch. Has appt. set for tomorrow at 245pm with her GI (Dr. Lewis). Will DC home GAS APPLIANCE ADJUSTER - PN: Obj Data Vital Signs Vital Signs: Vital Signs - 24 hr 03/20/19 20:00 03/20/19 22:23 03/21/19 06:04 Temperature 97.2 F L 96.7 F L Pulse Rate 68 76 78 Respiratory Rate 12 16 16 Blood Pressure 103/67 119/80 Pulse Oximetry 94 99 100 03/21/19 09:40 03/21/19 14:00 Temperature 97.0 F L Pulse Rate 61 63 Respiratory Rate 20 Blood Pressure 129/76 133/68 Pulse Oximetry 99 Intake/Output Intake/Output: Intake & Output 03/18/19 03/19/19 03/20/19 03/21/19 23:59 23:59 23:59 23:59 Intake Total 620 5660.0 2428 340 Output Total 2010 9533 9983 900 Balance -1390 3105.0 -637 -560 Meds/Results Medications: Active Medications Generic Name Dose Route Start Last Admin Trade Name Freq PRN Reason Stop Dose Admin Acetaminophen 1,000 mg 03/20/19 08:19 Tylenol Tablet PO Q6H PRN Mild Pain (1-3) or Fever Bisacodyl 10 mg 03/19/19 11:30 Dulcolax Suppository RECTAL QAM PRN Constipation Docusate Sodium 100 mg 03/19/19 12:00 03/21/19 08:06 Colace Capsule PO 100 mg BID LORETTA Administration Ibuprofen 600 mg 03/19/19 14:34 Motrin PO Q6H PRN Pain Rated 1-3 Ondansetron HCl 4 mg 03/17/19 22:29 03/21/19 09:29 Zofran Inj IV PUSH 4 mg Q4H PRN Administration Nausea Oxycodone/Acetaminophen 1 tablet 03/17/19 22:28 03/21/19 09:35 Percocet 5-325 Mg PO 1 tablet Q4H PRN Administration Pain Rated 7-10 Pantoprazole Sodium 40 mg 03/19/19 09:00 03/21/19 08:06 Protonix PO 40 mg QAM LORETTA Administration Promethazine HCl 25 mg 03/18/19 09:57 03/19/19 15:00 Phenergan Inj IV PUSH 25 mg Q6H PRN Administration Nausea And Vomiting Radiology Results: ITS Impressions Abdomen/Pelvis CT 03/18/19 08:15 IMPRESSION: 1. Unchanged subcutaneous fluid collection in the anterior pelvis, which may be a seroma or subacute hematoma. 2. Unchanged small volume of pelvic hemoperitoneum. Catheter Placement CT 03/18/19 11:51 IMPRESSION: 1. Successful CT-guided abscess drainage. At the end of the procedure, a small volume of blackish, viscus old blood was draining from the catheter. No fluid was sent for cultures. Labs CBC & Chem 7: 03/19/19 05:41 03/18/19 15:09
[2019-03-21] MEDS: NEOMYCIN/POLYMYXIN/BACITRACIN OINTMENT PACKET 1 PACKET (17:46)
--- NOTE | 2019-03-27 08:09 | PM.DS ---
DS: Diagnosis Discharge Diagnosis (1) Abdominal wall fluid collections: Code(s): R18.8 - Other ascites Status: Acute Assessment and Plan: radiology guided drain placement DS: Summary Time Spent with Patient Time attestation: Total time spent providing and/or coordinating discharge services: Discharge Plan Discharge Attending physician on discharge: Liz Whitlock Consulting providers: Nahun Neal ; Nelson Herrera ; Roger Yee V. Discharging Clinician: Liz Whitlock Patient Disposition: Home, Self-Care Activity: no driving and pelvic rest Diet: regular Wound Care Instructions: keep dressing dry and incision open to air Patient Instructions: Antibiotic Form Stand Alone Forms: General Discharge Information Follow-up/Referrals: Liz Whitlock MD [Physician] - Call for Appointment (see us to remove drain) Discharge Medications: New metoclopramide HCl [Reglan] 10 mg tablet 10 mg PO Q6H PRN (Reason: nausea and vomiting) Qty: 30 RF: 0 hydrocodone-acetaminophen 5-325 mg Tablet 1 tablet PO Q3H PRN (Reason: Pain Rated 5 Or Less) Qty: 20 RF: 0 Continued clonidine HCl 0.1 mg tablet 0.1 mg PO BID RF: 0 propranolol 60 mg tablet 60 mg PO BID RF: 0 hydrocodone-acetaminophen 10-325 mg tablet 1 tablet PO BID PRN (Reason: Pain) RF: 0 Hold Instructions: Resume on 03/14/19. amlodipine 10 mg tablet 10 mg PO DAILY RF: 0 ropinirole 2 mg tablet 2 mg PO TID RF: 0 hydrochlorothiazide 12.5 mg capsule 12.5 mg PO BID RF: 0 folic acid 1 mg tablet 5 mg PO DAILY RF: 0 mirtazapine 15 mg tablet 15 mg PO QPM RF: 0 diazepam 10 mg tablet 10 mg PO TID PRN (Reason: Anxiety) RF: 0 carbidopa-levodopa 25-100 mg tablet 2 tablet PO QID RF: 0 escitalopram oxalate 20 mg tablet 20 mg PO DAILY RF: 0 bupropion HCl 300 mg tablet extended release 24 hr 300 mg PO DAILY RF: 0 Date of admission: 03/20/19 16:15 Primary Care Provider: Sanjay Thayer Admitting Provider: Luna Espinal Discharge Date/Time: 03/21/19 18:20 Attending physician on admission: Liz Whitlock Condition: Stable
== END 2019-03-21 18:20 | disposition home or self-care (01) ==
LOC: ANHED 22:34 → ANH2MED 22:46
PROVIDERS: Family Medicine; Admitting Provider Obstetrics & Gynecology; Emergency Provider Emergency Medicine; PCP Emergency Medicine; Visit Provider Obstetrics & Gynecology Gynecology
DX: R18.8 Other ascites (principal); I10 Essential (primary) hypertension; G20 Parkinson's disease; Z90.710 Acquired absence of both cervix and uterus; Z90.79 Acquired absence of other genital organ(s); Z90.722 Acquired absence of ovaries, bilateral; R11.2 Nausea with vomiting, unspecified; K59.00 Constipation, unspecified
CPT/HCPCS: 36415; 36569; 74176; 74177; 75989; 80053; 81001; 83690; 85025; 85027; 96361; 96365; 96366; 96367; 96368; 96374; 96375; 96376; 99285; A9270; C1751; C1769; C9113; G0378; G0379; J0690; J1170; J2405; J2550; J3010; J7030; J7040; Q9967

== ENCOUNTER → 2020-03-14 10:52 | Outpatient (CLI) | payer MEDICARE, MEDICAID, SELFPAY ==
--- NOTE | ~2020-03-14 | MR_ITS ---
EXAMINATION: MR knee RT wo con DATE: 03/14/2020 11:56 INDICATION: Internal derangement of the right knee with generalized right knee pain and swelling afte r slipping and falling 2 weeks prior. TECHNIQUE: Magnetic resonance imaging (MRI) of the right knee was performed without intravenous contr ast. Sequences included coronal PD-weighted FSE, coronal PD-weighted FS FSE, sagittal T2-weighted FS E, sagittal PD-weighted FS FSE and axial PD weighted fat saturated FSE. COMPARISON: None. FINDINGS: Medial compartment: Medial meniscus is normal. Partial-thickness chondral ulceration and fissuring within a region of cho ndral swelling at the anterior to central weightbearing medial femoral condyle. There appears be a ti ny central subchondral osteophyte at the central weightbearing medial femoral condyle. There are smal l marginal osteophytes along the posterior and lateral margins of the weightbearing medial femoral co ndyle. Lateral compartment: Partial-thickness chondral ulceration at the posterior aspect of the lateral tibial plateau and at th e anterior to central weightbearing lateral femoral condyle along either side of the posterior horn o f the lateral meniscus. Small marginal osteophytes along the weightbearing lateral femoral condyle. Patellofemoral compartment: Deep chondral ulceration and fissuring at the trochlear groove and immediately adjacent aspects of th e medial and lateral trochlea. Additional partial thickness chondral ulceration and deep fissuring wi th tiny focus of subarticular edema at the lateral patellar facet. Small marginal patellar and trochl ear osteophytes are present. Ligaments and tendons: Anterior and posterior cruciate ligaments are normal. The medial collateral ligament and fibular karon ateral ligament complex are normal. Distal quadriceps tendinopathy. Patellar tendon is normal. The vi sualized medial and lateral hamstring tendons as well as the iliotibial band are normal. Fluid: Small right knee joint effusion at the lateral gutter of the suprapatellar pouch. No loose osteochond ral bodies identified. Osseous/other: No fracture or pathologic marrow replacing process. There is additional mild osteoarthritis at the pr oximal tibiofibular joint with small intra-articular ganglion cyst at the head of the fibula. IMPRESSION: 1. Mild tricompartmental osteoarthritis with regions of moderate grade chondromalacia at the medial a nd lateral compartments and moderate to high-grade patellar and trochlear chondromalacia. 2. Likely reactive small right knee joint effusion. Reviewed, dictated and finalized at location [facility]. [facility] IMPRESSION: 1. Mild tricompartmental osteoarthritis with regions of moderate grade chondrom alacia at the medial and lateral compartments and moderate to high-grade patell ar and trochlear chondromalacia. 2. Likely reactive small right knee joint effusion.
== END ==
PROVIDERS: PCP Emergency Medicine; Visit Provider Emergency Medicine
DX: M17.11 Unilateral primary osteoarthritis, right knee (principal); M25.461 Effusion, right knee
CPT/HCPCS: 73721

== ENCOUNTER 2020-05-18 20:40 | Emergency (ER) | payer MEDICARE, MEDICAID, SELFPAY ==
--- NOTE | ~2020-05-18 | CT_ITS ---
EXAMINATION: CT soft tissue neck w con DATE: 05/19/2020 00:14 INDICATION: Right paratracheal swelling and pain TECHNIQUE: Computed tomography (CT) of the neck was performed with 75 mL Omnipaque-350 intravenous co ntrast. Automated exposure control and iterative reconstruction technique were employed. Exam dose: 528.30 mGy-cm total exam DLP. COMPARISON: None FINDINGS: No orbital mass lesion is evident. The paranasal sinuses and mastoid air cells are normally developed and aerated bilaterally. Middle and inner ear apparatus appear normal bilaterally. The inc luded intracranial contents appear unremarkable. The parotid and submandibular glands appear symmetric and normal. Mixed cystic and solid right thyroid mass with peripheral calcifications is noted, measuring 1.8 cm w idth, 2.3 cm AP and 3.0 cm vertical dimension. Outpatient ultrasound examination is recommended for f urther evaluation. A 2 mm calcification of the left lobe of the thyroid gland. No left lobe or other thyroid mass lesion is evident. No other cervical mass lesion or new cervical lymphadenopathy is noted. The airway is patent. Cervical carotid arteries are patent, without evidence of dissection or thrombosis. No thrombus is id entified within the internal jugular veins. No superior mediastinal mass lesion. No thoracic aortic a neurysm or dissection is evident at the ascending aorta, aortic arch or proximal descending thoracic aorta. Normal heart size. No pericardial effusion. Moderately severe degenerative disc disease with posterior spurring at C4-5, C5-6, C6-7. IMPRESSION: Up to 3 cm complex peripherally calcified right thyroid mass; thyroid ultrasound examina tion is recommended. Reviewed, dictated and finalized at [facility]. Reviewed, dictated and finalized at location [facility]. IMPRESSION: Up to 3 cm complex peripherally calcified right thyroid mass; thyr oid ultrasound examination is recommended.
--- NOTE | ~2020-05-18 | XR_ITS ---
XR chest 2V DATE: 05/18/2020 21:37 INDICATION: Shortness of breath, emesis. Feels like a lump in throat. Left shoulder pain. TECHNIQUE: AP and lateral views of the chest COMPARISON: 01/18/2019 AP and lateral chest FINDINGS: Normal heart size. No hilar or mediastinal enlargement. No pulmonary infiltrate or consolid ation, pleural effusion or pulmonary vascular congestion or pneumothorax. Included skeletal structures are unremarkable. IMPRESSION: No active cardiopulmonary disease Reviewed, dictated and finalized at location [facility].
[2020-05-18 20:46] VITALS: O2SAT 100
[2020-05-18 20:47] VITALS: PULSE 104; RESP 21; O2SAT 100
--- NOTE | 2020-05-18 20:49 | PC.NURSE ---
Pt presents from home with complaints of sob and nausea. Pt states she was diagnosed with left leg DVT approx 10 days ago. Pt noted to be hyperventilating and actively trying to force herself to vomit due to nausea. Left leg where pt states DVT was located noted with swelling and discoloration. Pt stating that she cannot breathe. O2 on room air noted at 100% with RR 30. Pt note to be tachycardic. Telemetry, O2 sat and BP cuff applied.
--- NOTE | 2020-05-18 20:52 | PC.NURSE ---
Unable to obtain accurate BP due to pt movement. Will document BP when able to obtain.
[2020-05-18] MEDS: SODIUM CHLORIDE 0.9% IV 1,000 ML 999 ML IV CONT (21:16)
[2020-05-18] MEDS: PROMETHAZINE HCL 25 MG/ML AMPUL 12.5 MG IV PUSH (21:16)
--- NOTE | 2020-05-18 21:23 | PC.NURSE ---
Pt to xray via cart.
--- NOTE | 2020-05-18 21:58 | ED.SOB ---
HPI - SOB/Dyspnea General Chief Complaint: Shortness of Breath/Dyspnea <Doc Houston MD - Last Filed: 05/19/20 00:07> Stated Complaint: dvt <Doc Houston MD - Last Filed: 05/19/20 00:07> Time Seen by Provider: 05/18/20 21:01 <Doc Houston MD - Last Filed: 05/19/20 00:07> History of Present Illness HPI Narrative: Patient is a 54-year-old female who presents ER with nausea and vomiting as well as some shortness of breath. Patient reports she is sleeping when she suddenly felt nauseated it was associated shortness of breath. She began vomiting and then one point felt like she had something stuck in her throat. She then was able to clear it and continued to vomit. She has been dry heaving since being picked up by EMS. She received Zofran with only minor improvement. She has no fevers or chills or sweats. No chest pain or chest pressure. Denies history of cyclic vomiting syndrome. She does have history of emesis when she takes for restless leg syndrome medication reports she also often takes promethazine. She did not take any of these medications tonight. She denies urinary frequency or urgency. She does have some left flank pain that radiates into her left shoulder. <Doc Houston MD - Last Filed: 05/19/20 00:07> Related Data Home Medications: Home Medications Medication Instructions Recorded Confirmed amlodipine 10 mg PO DAILY 01/18/19 03/18/19 bupropion HCl 300 mg PO DAILY 01/18/19 03/18/19 carbidopa-levodopa 2 tablet PO QID 01/18/19 03/18/19 clonidine HCl 0.1 mg PO BID 01/18/19 03/18/19 diazepam 10 mg PO TID PRN 01/18/19 03/18/19 escitalopram oxalate 20 mg PO DAILY 01/18/19 03/18/19 folic acid 5 mg PO DAILY 01/18/19 03/18/19 hydrochlorothiazide 12.5 mg PO BID 01/18/19 03/18/19 hydrocodone-acetaminophen 1 tablet PO BID PRN 01/18/19 03/18/19 mirtazapine 15 mg PO QPM 01/18/19 03/18/19 propranolol 60 mg PO BID 01/18/19 03/18/19 ropinirole 2 mg PO TID 01/18/19 03/18/19 <Doc Houston MD - Last Filed: 05/19/20 00:07> Allergies/Adverse Reactions: Allergies Allergy/AdvReac Type Severity Reaction Status Date / Time codeine Allergy Unknown Nausea and Verified 03/05/19 10:15 Vomiting <Doc Houston MD - Last Filed: 05/19/20 00:07> Review of Systems Review of Systems: All systems reviewed & are unremarkable except as noted in HPI and below <Doc Houston MD - Last Filed: 05/19/20 00:07> Constitutional: Constitutional: Denies chills, Denies fever(s) and Denies weakness <Doc Houston MD - Last Filed: 05/19/20 00:07> Cardiovascular: Cardiovascular: Denies chest pain, Denies rapid heart rate and Denies radiating jaw, neck or arm pain <Doc Houston MD - Last Filed: 05/19/20 00:07> Respiratory: Respiratory: Denies cough and Denies dyspnea <Doc Houston MD - Last Filed: 05/19/20 00:07> Gastrointestinal: Gastrointestinal: Denies abdominal pain, Denies diarrhea, Reports nausea and Reports vomiting <Doc Houston MD - Last Filed: 05/19/20 00:07> Genitourinary: Genitourinary: Denies dysuria, Reports flank pain and Denies urinary incontinence <Doc Houston MD - Last Filed: 05/19/20 00:07> [facility] Past Medical History Medical History: Medical History (Updated 05/19/20 @ 00:51 by Christine Traylor MD) Hemoperitoneum HTN (hypertension) Iron deficiency anemia sees hematology and receives iron infusions (normal spontaneous vaginal delivery) x 5 Parkinson disease patient stated this was due to her severe iron storage problem and is a parkinson like disease Uterine perforation 2019 following uterine ablation with Dr. Gaby Forbes at [facility], occurred with intra abdominal bleeding and transferred to [place] <Doc Houston MD - Last Filed: 05/19/20 00:07> Surgical History Surgical History: Surgical History (Updated 03/17/19 @ 20:59 by Justice Molina) H/O prior ablation treatment 2
[2020-05-18 22:00] LABS: Basophils Absolute Auto 0.1 K/mm3 (0.0-0.1); Basophils Percent Auto 0.7 % (0.2-1.2); Eosinophils Absolute Auto 0.1 K/mm3 (0-0.3); Eosinophils Percent Auto 1.5 % (0-4.4); Hematocrit 38.2 % (37.0-47.0); Hemoglobin 13.1 g/dL (12.0-15.0); Immature Granulocyte Absolute 0.03 K/mm3 (0.00-0.031); Immature Granulocyte Percent A 0.4 % (0-0.5); Lymphocytes Absolute Auto 1.78 K/mm3 (0.9-3.2); Lymphocytes Percent Auto 21.8 % (18.3-44.2); Mean Corpuscular HGB Conc 34.3 g/dl (32-36); Mean Corpuscular Volume 90.3 fl (80-100); Mean Platelet Volume 9.5 fl (7.4-10.4); Monocytes Absolute Auto 0.4 K/mm3 (0.1-0.6); Monocytes Percent Auto 5.3 % (2.6-8.5); Neutrophils Absolute Auto 5.7 K/mm3 (1.3-6.7); Neutrophils Percent Auto 70.3 % (45.5-73.1); Platelet Count Result 279 k/mm3 (150-375); Red Blood Count 4.23 M/mm3 (4.2-5.4); Red Cell Distribution Width 12.4 % (11.5-14.5); White Blood Count 8.2 K/mm3 (4.5-10.0)
[2020-05-18 22:09] VITALS: BP 135/78; PULSE 79; RESP 24; TEMP 36.8; O2SAT 96
--- NOTE | 2020-05-18 22:09 | PC.NURSE ---
Pt resting on cart and remains alert and oriented x4. States nausea has subsided since medication administration. Vitals remain stable and pt in no obvious distress. Call button and personal items within reach. Pt advised to press call button for assistance.
[2020-05-18 22:14] LABS: Alanine Aminotransferase 20 U/L (4-35); Albumin Level 3.8 g/dL (3.5-5.1); Alkaline Phosphatase 99 U/L (38-126); Anion Gap 6 mmol/L (8-16); Aspartate Amino Transferase 25 U/L (14-36); Bilirubin,Total 0.3 mg/dL (0.2-1.3); Blood Urea Nitrogen 22 mg/dL (7-17); Calcium 9.2 mg/dL (8.4-10.2); Carbon Dioxide 28 mmol/L (22-30); Chloride 107 mmol/L (98-107); Estimated CRCL calculation 54 ml/min; Estimated Glomerular Filt Rate 47; Glucose 99 mg/dL (65-105); Lipase 74 U/L (23-300); Potassium 3.4 mmol/L (3.4-5.0); Sodium 141 mmol/L (137-145)
[2020-05-18 22:30] LABS: Add Urine Microscopic? YES; Appearance Urine Cloudy (Clear); Bacteria Urine Trace /hpf; Bilirubin Urine Negative (Negative); Blood Urine 1+ (Negative); Color Urine Yellow (Yellow); Glucose Urine UA Negative (Negative); Ketones Urine Negative (Negative); Leukocyte Esterase Ur 3+ LEU/UL (Negative); Mucus Urine Rare /lpf; Nitrate Urine Negative (Negative); Protein Urine Negative (Negative); Specific Grav Ur 1.005 (1.001-1.035); Squamous Epithelial Cell Urine Moderate /hpf (Few); Urobilinogen Urine Negative mg/dL (<2.0); WBC Urine 31-50 /hpf
--- NOTE | 2020-05-18 22:40 | PC.NURSE ---
Pt assisted on and off of bedpan. Noted to be afebrile with complaints of being cold; warm blanket provided. Pt resting on cart in its lowest position with call button and personal items within reach. Pt advise to press call button for assistance. NO complaints or concerns voiced at this time.
[2020-05-19 00:22] VITALS: PULSE 76; RESP 19; O2SAT 98
== END 2020-05-19 01:31 | disposition home or self-care (01) ==
PROVIDERS: Emergency Medicine; Emergency Provider Emergency Medicine; PCP Emergency Medicine
DX: N39.0 Urinary tract infection, site not specified (principal); E04.1 Nontoxic single thyroid nodule; I10 Essential (primary) hypertension; D50.9 Iron deficiency anemia, unspecified; G20 Parkinson's disease
CPT/HCPCS: 36415; 70491; 71046; 80053; 81001; 83690; 85025; 87086; 87088; 96361; 96365; 96375; 99284; J0696; J2550; J7030; Q9967

== ENCOUNTER 2021-06-15 17:14 | Emergency (ER) | payer MEDICARE, MEDICAID, SELFPAY ==
--- NOTE | ~2021-06-15 | XR_ITS ---
EXAM: XR hip LT min 3V w AP pelvis HISTORY: fall/injury COMPARISON: None available FINDINGS: Mild degenerative changes in the lower lumbar spine. Pelvic phleboliths. Partially visuali zed bowel gas pattern is normal. Mild degenerative changes in the bilateral hips. No fracture or disl ocation. IMPRESSION: No acute osseous finding in the pelvis or left hip. Reviewed, dictated and finalized at location K.
--- NOTE | ~2021-06-15 | XR_ITS ---
EXAM: XR ribs LT 2V w CXR 2V HISTORY: FALL, UPPER LT RIB PAIN COMPARISON: 05/18/2020 FINDINGS: Clear lungs. Normal cardiomediastinal silhouette. No fracture. No dislocation. IMPRESSION: No acute osseous finding in the left ribs. No acute cardiopulmonary process. Reviewed, dictated and finalized at location K.
--- NOTE | ~2021-06-15 | XR_ITS ---
EXAM: XR knee LT min 4V HISTORY: fall/injury COMPARISON: None available FINDINGS: Subtle linear lucencies in the lateral tibial plateau, without significant displacement of bone or depression. No other fracture. Moderate volume joint fluid. Moderate tricompartmental osteoa rthritis. IMPRESSION: Nondisplaced lateral tibial plateau fracture. Reviewed, dictated and finalized at location K.
[2021-06-15 17:16] VITALS: BP 143/104; PULSE 131; RESP 18; TEMP 37.1; O2SAT 99
--- NOTE | 2021-06-15 17:32 | PC.NURSE ---
pt presents in room 7 with left hip bend inward and left knee bent inward. unable to fully straighten or bend knee due to extreme pain.
[2021-06-15] MEDS: fentaNYL CITRATE INJ (*CRX) 100 MCG/2 ML VIAL 50 MCG IV PUSH (17:41)
[2021-06-15 19:25] VITALS: BP 149/72; PULSE 101; RESP 22; O2SAT 99
--- NOTE | 2021-06-15 19:27 | PC.NURSE ---
Assumed care of pt at this time. Pt requesting pain medication
--- NOTE | 2021-06-15 20:07 | PC.NURSE ---
This RN went in to the room to administered ordered morphine. Pt states morphine doesn't work for me . Pt does not want morphine at this time. Primary RN informed.
--- NOTE | 2021-06-15 20:12 | ED.LOWEXIN ---
HPI - Extremity Injury (Lower) General Chief Complaint: Extremity Injury, Lower Stated Complaint: fall-knee and hip pain Time Seen by Provider: 06/15/21 19:03 History of Present Illness HPI Narrative: Patient is a 55-year-old female who presents ER status post fall. She is on a stepladder doing some work at home when it went out from beneath her. She landed on her left side. Had sudden onset pain in her hip and knee. She did not strike her head or lose consciousness. When she tried to stand up using a walker she had pain in her knee and fell down again. No numbness or tingling. No shortening. Related Data Home Medications Medication Instructions Recorded Confirmed amlodipine 10 mg PO DAILY 01/18/19 03/18/19 bupropion HCl 300 mg PO DAILY 01/18/19 03/18/19 carbidopa-levodopa 2 tablet PO QID 01/18/19 03/18/19 clonidine HCl 0.1 mg PO BID 01/18/19 03/18/19 diazepam 10 mg PO TID PRN 01/18/19 03/18/19 escitalopram oxalate 20 mg PO DAILY 01/18/19 03/18/19 folic acid 5 mg PO DAILY 01/18/19 03/18/19 hydrochlorothiazide 12.5 mg PO BID 01/18/19 03/18/19 hydrocodone-acetaminophen 1 tablet PO BID PRN 01/18/19 03/18/19 mirtazapine 15 mg PO QPM 01/18/19 03/18/19 propranolol 60 mg PO BID 01/18/19 03/18/19 ropinirole 2 mg PO TID 01/18/19 03/18/19 Allergies Allergy/AdvReac Type Severity Reaction Status Date / Time codeine Allergy Unknown Nausea and Verified 06/15/21 17:31 Vomiting Review of Systems Review of Systems: All systems reviewed & are unremarkable except as noted in HPI and below Constitutional: Constitutional: Denies chills, Denies fever(s) and Denies weakness Cardiovascular: Cardiovascular: Denies chest pain Comments: Rib pain Respiratory: Respiratory: Denies cough, Denies dyspnea and Denies wheezing Gastrointestinal: Gastrointestinal: Denies abdominal pain, Denies nausea and Denies vomiting Musculoskeletal: Musculoskeletal: Denies back pain, Reports myalgias, Reports arthralgias and Reports joint swelling Neurologic: Denies syncope, Denies focal weakness and Denies numbness PMFSH Past Medical History Medical History (Updated 06/15/21 @ 21:23 by Doc Houston MD) Hemoperitoneum HTN (hypertension) Iron deficiency anemia sees hematology and receives iron infusions (normal spontaneous vaginal delivery) x 5 Parkinson disease patient stated this was due to her severe iron storage problem and is a parkinson like disease Uterine perforation 2019 following uterine ablation with Dr. Gaby Forbes at [facility], occurred with intra abdominal bleeding and transferred to [place] Surgical History Surgical History (Updated 03/17/19 @ 20:59 by Justice Molina) H/O prior ablation treatment 2019, uterine ablation S/P FRANSISCO-BSO Family History Family History Mother Hypertension Father Family history of malignant neoplasm of bone, Onset Age: 77 Social History Social History Smoking status: Never smoker Alcohol intake: current Substance use: never Substance use type: does not use Gender identity (if verbalized by the patient): Female Spiritual care concerns: No Exam Narrative: GENERAL: Anxious-appearing, well-nourished, and in no acute distress. HEAD: Normocephalic, atraumatic. ENT: Mucous membranes moist. NECK: Supple. CHEST: Clear to auscultation. No respiratory distress. Mild anterior chest wall pain in the left lower aspect. No bruising or crepitus. HEART: Regular rate and rhythm. Normal peripheral pulses. ABDOMEN: Soft, nontender, nondistended. EXTREMITIES: Left lower extremity with tenderness about the lateral aspect of the knee with mild swelling. No tenderness of the ankle or hip. SKIN: Warm, dry, no rash. NEURO: Alert and oriented x3. Course Course Emergency Course: Orthopedic surgery consulted. Recommends placing patient knee immobilizer and g
[2021-06-15] MEDS: HYDROcodone/acetaminophen (*CRX) 5-325 MG TABLET 1 TAB PO (20:51)
[2021-06-15 20:59] VITALS: BP 122/74; PULSE 100; RESP 16; O2SAT 98
== END 2021-06-15 22:00 | disposition home or self-care (01) ==
PROVIDERS: Emergency Provider Emergency Medicine; PCP Emergency Medicine
DX: S82.145A Nondisplaced bicondylar fracture of left tibia, initial encounter for closed fracture (principal); I10 Essential (primary) hypertension; Z86.2 Personal history of diseases of the blood and blood-forming organs and certain disorders involving the immune mechanism; Z79.899 Other long term (current) drug therapy; Z88.5 Allergy status to narcotic agent; W11.XXXA Fall on and from ladder, initial encounter
CPT/HCPCS: 71046; 71100; 73502; 73564; 96374; 99284; A9270; J3010

== ENCOUNTER 2023-04-19 19:03 | Emergency (ER) | payer MEDICARE, SELFPAY ==
--- NOTE | ~2023-04-19 | XR_ITS ---
EXAM: XR knee LT 3V DATE: 04/19/2023 21:17 HISTORY: trauma unspecified left knee pain . COMPARISON: 06/15/2021. FINDINGS: Normal mineralization. No fracture or dislocation. No lytic or blastic lesion. Mild-modera te tricompartmental left knee osteoarthritis. No erosion or periosteal change. Soft tissues within no rmal limits. IMPRESSION: No acute osseous finding in the left knee. Reviewed, dictated and finalized at location K. E ESCORT
--- NOTE | ~2023-04-19 | CT_ITS ---
EXAMINATION: CT brain wo con DATE: 04/19/2023 20:52 INDICATION: head injury . TECHNIQUE: Computed tomography (CT) of the head was performed without intravenous contrast. The mA wa s adjusted according to patient size. Iterative reconstruction technique was employed. The dose-lengt h product was 605.33 mGy-cm. COMPARISON: None. FINDINGS: No acute intracranial hemorrhage or extra-axial fluid collection. No hydrocephalus, mass, or herniation. No acute ischemic infarct. Unremarkable dural venous sinus attenuation. No acute osseous abnormality. The aerated spaces are clear. IMPRESSION: No acute intracranial process. Reviewed, dictated and finalized at location K. ING SHOW HOST
--- NOTE | ~2023-04-19 | CT_ITS ---
EXAMINATION: CT cervical spine wo con DATE: 04/19/2023 20:58 INDICATION: trauma TECHNIQUE: Computed tomography (CT) of the cervical spine was performed without intravenous contrast. Automated exposure control and iterative reconstruction technique were employed. The dose-length pro duct was 349.58 mGy-cm. COMPARISON: CT soft tissue neck 05/18/2020. FINDINGS: Vertebral Body Alignment: Intact. Craniocervical and atlantoaxial alignment: Mild degenerative change. Alignment intact. Osseous structures/fracture: No evidence of a lytic or blastic process in the visualized spine. No e vidence of acute fracture. Cervical soft tissues: The paraspinal soft tissues planes are maintained. 2.4 cm calcified right thyr oid nodule. Degenerative changes: Multilevel degenerative disc disease. Multilevel mild-moderate degrees of neura l foraminal narrowing and central canal stenosis. IMPRESSION: No acute fracture or traumatic malalignment in the cervical spine. 2.4 cm right thyroid nodule, by history this has undergone workup at an outside institution. Reviewed, dictated and finalized at location K. [employer]
--- NOTE | ~2023-04-19 | CT_ITS ---
EXAMINATION: CT chst ab pel thor lum w DATE: 04/19/2023 21:07 INDICATION: Trauma. TECHNIQUE: Computed tomography (CT) of the chest, abdomen, pelvis, thoracic spine and lumber spine wa s performed with 100 mL Omnipaque-350 intravenous contrast. Automated exposure control and iterative reconstruction technique were employed. The dose-length product was 1645.22 mGy-cm. COMPARISON: CT abdomen pelvis 03/17/2019 FINDINGS: CHEST: No thoracic aortic injury. No mediastinal hematoma. No pericardial effusion. No acute lung injury. No pleural effusion or pneumothorax. ABDOMEN/PELVIS: No solid organ injury. Cholelithiasis. Subcentimeter splenic hypodensity, likely cyst or hemangioma, stable since the comparison study. No evidence of bowel or mesenteric injury. Moderate esophagitis/gastritis. No free fluid or free air. No retroperitoneal hematoma. Pelvic contents are atraumatic. Distended urinary bladder. Absent uterus. MUSCULOSKELETAL (excluding spine): No acute fracture. THORACIC SPINE: No fracture or traumatic malalignment of the thoracic spine. No severe central canal or neural forami nal narrowing. LUMBAR SPINE: No fracture or traumatic malalignment of the lumbar spine. No severe central canal or neural foramina l narrowing. Severe degenerative disc disease at L5-S1. Mild lower lumbar facet arthropathy. IMPRESSION: No acute process detected in the chest, abdomen, pelvis, thoracic spine, or lumbar spine. No right humeral injury detected, noting that a small portion of the lateral epicondyle was excluded from the [id number]. Reviewed, dictated and finalized at location K. INTMENT CLERK IMPRESSION: No acute process detected in the chest, abdomen, pelvis, thoracic spine, or lum bar spine. No right humeral injury detected, noting that a small portion of the lateral ep icondyle was excluded from the [id number].
[2023-04-19 19:13] VITALS: BP 144/93; PULSE 69; RESP 17; TEMP 36.6; O2SAT 100
[2023-04-19 19:20] VITALS: O2SAT 100
[2023-04-19 19:21] VITALS: BP 144/93; PULSE 71; PULSE 75; RESP 18; O2SAT 100
[2023-04-19 19:26] VITALS: O2SAT 100
--- NOTE | 2023-04-19 19:40 | ED.GENADULT ---
HPI - General Adult General Chief complaint: Syncope Stated complaint: syncope, shoulder pain Time Seen by Provider: 04/19/23 19:10 History of Present Illness HPI narrative: 57-year-old female presented to emergency department after having a ground level fall. Patient states she was up after she had onset of dizziness and fell backwards. Patient did strike a dresser during fall. Did strike her head. Patient presents to ED complaining some blurred vision, back pain, tailbone pain, left knee pain and right humerus pain. Related Data Home Medications Medication Instructions Recorded Confirmed amlodipine 10 mg tablet 10 mg PO DAILY 01/18/19 03/18/19 bupropion HCl 300 mg 24 hr tablet, 300 mg PO DAILY 01/18/19 03/18/19 extended release carbidopa 25 mg-levodopa 100 mg 2 tablet PO QID 01/18/19 03/18/19 tablet clonidine HCl 0.1 mg tablet 0.1 mg PO BID 01/18/19 03/18/19 diazepam 10 mg tablet 10 mg PO TID PRN Anxiety 01/18/19 03/18/19 escitalopram oxalate 20 mg tablet 20 mg PO DAILY 01/18/19 03/18/19 folic acid 1 mg tablet 5 mg PO DAILY 01/18/19 03/18/19 hydrochlorothiazide 12.5 mg capsule 12.5 mg PO BID 01/18/19 03/18/19 hydrocodone 10 mg-acetaminophen 1 tablet PO BID PRN Pain 01/18/19 03/18/19 325 mg tablet mirtazapine 15 mg tablet 15 mg PO QPM 01/18/19 03/18/19 propranolol 60 mg tablet 60 mg PO BID 01/18/19 03/18/19 ropinirole 2 mg tablet 2 mg PO TID 01/18/19 03/18/19 Allergies Allergy/AdvReac Type Severity Reaction Status Date / Time codeine Allergy Unknown Nausea and Verified 04/19/23 19:05 Vomiting ferric carboxymaltose Allergy Stopped Verified 04/19/23 19:19 [From Injectafer] Breathing Review of Systems Review of Systems: All systems reviewed & are unremarkable except as noted in HPI and below PMFSH Past Medical History Medical History (Updated 04/20/23 @ 00:00 by Background Daemon) Hemoperitoneum HTN (hypertension) Iron deficiency anemia sees hematology and receives iron infusions (normal spontaneous vaginal delivery) x 5 Parkinson disease patient stated this was due to her severe iron storage problem and is a parkinson like disease Uterine perforation 2019 following uterine ablation with Dr. Gaby Forbes at [facility], occurred with intra abdominal bleeding and transferred to [place] Surgical History Surgical History (Updated 03/17/19 @ 20:59 by Justice Molina) H/O prior ablation treatment 2019, uterine ablation S/P FRANSISCO-BSO Family History Family History Mother Hypertension Father Family history of malignant neoplasm of bone, Onset Age: 77 Social History Social History Smoking status: Never smoker Alcohol intake: current Substance use: never Substance use type: does not use Gender identity (if verbalized by the patient): Female Spiritual care concerns: No Exam Narrative: APPEARANCE: Well appearing, no pain, no distress, well-nourished. HEAD: normocephalic, atraumatic. EYES: PERRLA/EOMI, conjunctivae clear. NOSE: Normal no drainage NECK: Supple. No adenopathy, no masses. RESPIRATORY: Airway patent, respirations nonlabored. Clear to auscultation bilaterally, no rales, rhonchi, wheezing. CARDIOVASCULAR: Regular rate and rhythm without murmurs rubs or gallops. ABDOMINAL: Soft, nontender, nondistended, normal bowel sounds MUSCULOSKELETAL: Midline tenderness to back and tenderness to right for NEURO: Alert. Cranial nerves II through XII intact. Good gait. Good coordination SKIN: Warm, dry. Normal Color Course Course Emergency Course: Patient was discharged back to home Vital Signs Vital signs: Vital Signs Temperature 97.8 F 04/19/23 19:13 Pulse Rate 69 04/19/23 19:13 Respiratory Rate 17 04/19/23 19:13 Blood Pressure 144/93 H 04/19/23 19:13 Pulse Oximetry 100 04/19/23 19:13 Oxygen Delivery Room Air
--- NOTE | 2023-04-19 19:51 | ECG_ITS ---
Measurements Intervals [place] Rate: 65 P: 50 MT: 178 QRS: 47 QRSD: 86 T: 24 QT: 413 QTc: 431 Interpretive Statements SINUS RHYTHM BASELINE ARTIFACT- I, II, III, AVR, AVL, V1 NORMAL ECG NO PREVIOUS ECG AVAILABLE FOR COMPARISON Electronically Signed On 04-19-2023 20:46:45 PRODUCTION HAND by Juan Francisco Roach D.O.
[2023-04-19] MEDS: fentaNYL CITRATE INJ (*CRX) 100 MCG/2 ML VIAL 50 MCG IV PUSH (20:07)
[2023-04-19 20:15] LABS: Basophils Absolute Auto 0.1 K/mm3 (0.0-0.1); Eosinophils Absolute Auto 0.1 K/mm3 (0-0.3); Eosinophils Percent Auto 2.4 % (0-4.4); Hematocrit 39.1 % (37.0-47.0); Hemoglobin 12.5 g/dL (12.0-15.0); Immature Granulocyte Absolute 0.02 K/mm3 (0.00-0.031); Immature Granulocyte Percent A 0.3 % (0-0.5); Lymphocytes Absolute Auto 2.31 K/mm3 (0.9-3.2); Lymphocytes Percent Auto 39.5 % (18.3-44.2); Mean Corpuscular Hemoglobin 29.4 pg (26-34); Mean Platelet Volume 9.7 fl (7.4-10.4); Monocytes Absolute Auto 0.5 K/mm3 (0.1-0.6); Monocytes Percent Auto 7.9 % (2.6-8.5); Neutrophils Absolute Auto 2.9 K/mm3 (1.3-6.7); Neutrophils Percent Auto 48.9 % (45.5-73.1); Platelet Count Result 262 k/mm3 (150-375); Red Blood Count 4.25 M/mm3 (4.2-5.4); Red Cell Distribution Width 12.8 % (11.5-14.5); White Blood Count 5.9 K/mm3 (4.5-10.0)
[2023-04-19 20:25] LABS: Prothrombin Time 13.6 Seconds (11.1-14.7)
[2023-04-19 20:25] LABS: Alanine Aminotransferase 23 U/L (6-35); Albumin Level 4.1 g/dL (3.5-5.1); Alkaline Phosphatase 105 U/L (38-126); Anion Gap 5 mmol/L (8-16); Aspartate Amino Transferase 28 U/L (14-36); Bilirubin,Total 0.7 mg/dL (0.2-1.3); Blood Urea Nitrogen 15 mg/dL (7-17); Calcium 9.7 mg/dL (8.4-10.2); Carbon Dioxide 28 mmol/L (22-30); Chloride 107 mmol/L (98-107); Estimated CRCL calculation 89 ml/min; Estimated Glomerular Filt Rate > 60; Glucose 93 mg/dL (65-110); Potassium 3.6 mmol/L (3.4-5.0); Sodium 140 mmol/L (137-145)
[2023-04-19 20:26] LABS: Partial Thromboplastin Time 27.9 SECONDS (22.3-36.8)
[2023-04-19 20:37] LABS: Troponin I < 0.012 ng/mL (0.000-0.034)
== END 2023-04-19 22:37 | disposition home or self-care (01) ==
PROVIDERS: Emergency Provider Emergency Medicine; PCP Emergency Medicine
DX: S09.90XA Unspecified injury of head, initial encounter (principal); S89.92XA Unspecified injury of left lower leg, initial encounter; M79.621 Pain in right upper arm; M54.9 Dorsalgia, unspecified; I10 Essential (primary) hypertension; D50.9 Iron deficiency anemia, unspecified; Z90.710 Acquired absence of both cervix and uterus; Z90.722 Acquired absence of ovaries, bilateral; Z90.79 Acquired absence of other genital organ(s); E04.1 Nontoxic single thyroid nodule; W11.XXXA Fall on and from ladder, initial encounter
CPT/HCPCS: 36415; 70450; 71260; 72125; 72129; 72132; 73562; 74177; 80053; 84484; 85025; 85610; 85730; 93005; 96374; 99284; J3010; Q9967

== ENCOUNTER 2024-10-15 00:15 | Emergency (ER) | payer MEDICARE, SELFPAY ==
[2024-10-15] VITALS (23 sets, daily range): BP systolic 83–131; BP diastolic 54–94; PULSE 74–108; RESP 11–21; TEMP 36.7; O2SAT 97–100
--- NOTE | ~2024-10-15 | XR_ITS ---
EXAMINATION: XR chest 1V portable 10/15/2024 01:49 INDICATION: Weakness PROCEDURE: AP portable chest COMPARISON: Comparison to multiple prior studies sequentially, with oldest reviewed study dated 09/30/2016. FINDINGS: The lungs are clear. The cardiomediastinal silhouette is within normal limits. There are no pleural effusions. There is no pneumothorax suspected. IMPRESSION: 1: NO ACUTE CARDIOPULMONARY DISEASE. Reviewed, dictated and finalized at location O.
--- NOTE | ~2024-10-15 | CT_ITS ---
EXAMINATION: CT abdomen pelvis w con DATE: 10/15/2024 03:43 INDICATION: Abdominal pain TECHNIQUE: Computed tomography (CT) of the abdomen and pelvis was performed with 100 mL Omnipaque-350 intravenous contrast. Automated exposure control and iterative reconstruction technique were employed. The dose-length product was 302.66 mGy-cm. COMPARISON: 04/19/2023 FINDINGS: Mild discoid atelectasis in the left lower lobe. Thicker band of discoid atelectasis at the lateral basilar right lower lobe. Heart size is normal. No pericardial or pleural effusion. Heterogeneous pattern of prominent diffuse hepatic steatosis. Peripherally calcified gallstone at the fundus of the normal nondilated gallbladder. Spleen, pancreas, bilateral adrenal glands and right kidney are normal. 1.1 cm lesion at the posterior wall of the left kidney with greater than simple fluid low-attenuation but lower attenuation surrounding enhancing renal parenchyma is unchanged since 03/06/2019 at which time it demonstrated a similar density as on subsequent noncontrast study on 03/18/2019 consistent with a proteinaceous/hemorrhagic cyst. Postoperative change of prior left hemicolectomy with Badillo's pouch the deep pelvis and left abdominal end colostomy. Additional small bowel anastomosis in the anterior pelvis. Normal appendix. Decompressed bladder is normal. The uterus is not identified and has likely been surgically resected. No free intraperitoneal gas or fluid. No pathologically enlarged abdominal or pelvic lymphadenopathy. Moderate to severe spondylosis at L5-S1 with mild spondylosis and more cephalad lumbar and lower thoracic spine.. IMPRESSION: 1. No acute intra-abdominal/pelvic process. 2. Prominent heterogeneous pattern of diffuse hepatic steatosis. 3. Cholelithiasis. Reviewed, dictated and finalized at location A.
--- NOTE | 2024-10-15 00:31 | ECG_ITS ---
Test Date: 2024-10-15 01:43:52 Measurements Intervals [place] Rate: 94 P: 26 ME: 158 QRS: 28 QRSD: 82 T: 23 QT: 362 QTc: 454 Interpretive Statements SINUS RHYTHM NONSPECIFIC T-WAVE ABNORMALITY- DIFFUSE LEADS BASELINE ARTIFACT- I, III, AVR, AVL, AVF, V1-V6 BORDERLINE ECG No previous ECG available for comparison Electronically Signed On 10-15-2024 07:17:37 CDT by Juan Francisco Roach D.O.
[2024-10-15] MEDS: diazePAM INJ (*CRX) 10 MG/2 ML SYRINGE 5 MG IV PUSH (00:52)
--- NOTE | 2024-10-15 01:13 | ED.GENADULT ---
HPI - General Adult General Chief complaint: Anxiety Stated complaint: anxiety Time Seen by Provider: 10/15/24 00:24 History of Present Illness HPI narrative: Patient 59-year-old female who presents emergency department with chief complaint anxiety. [facility] from [facility] a patient reportedly had low blood pressure at the facility and reports that she has also been having abdominal discomfort the patient does not know why she is at the nursing facility. Related Data Home Medications ?Medication ?Instructions ?Recorded ?Confirmed ?Last Taken ?Type amlodipine 10 mg tablet 10 mg PO DAILY 01/18/19 03/18/19 Unknown History bupropion HCl 300 mg 24 hr tablet, 300 mg PO DAILY 01/18/19 03/18/19 Unknown History extended release carbidopa 25 mg-levodopa 100 mg 2 tablet PO QID 01/18/19 03/18/19 Unknown History tablet clonidine HCl 0.1 mg tablet 0.1 mg PO BID 01/18/19 03/18/19 Unknown History diazepam 10 mg tablet 10 mg PO TID PRN Anxiety 01/18/19 03/18/19 Unknown History escitalopram oxalate 20 mg tablet 20 mg PO DAILY 01/18/19 03/18/19 Unknown History folic acid 1 mg tablet 5 mg PO DAILY 01/18/19 03/18/19 Unknown History hydrochlorothiazide 12.5 mg capsule 12.5 mg PO BID 01/18/19 03/18/19 Unknown History hydrocodone 10 mg-acetaminophen 1 tablet PO BID PRN Pain 01/18/19 03/18/19 Unknown History 325 mg tablet mirtazapine 15 mg tablet 15 mg PO QPM 01/18/19 03/18/19 Unknown History propranolol 60 mg tablet 60 mg PO BID 01/18/19 03/18/19 Unknown History ropinirole 2 mg tablet 2 mg PO TID 01/18/19 03/18/19 Unknown History Allergies Allergy/AdvReac Type Severity Reaction Status Date / Time codeine Allergy Unknown Nausea and Verified 04/19/23 19:05 Vomiting ferric carboxymaltose (From Allergy Stopped Verified 04/19/23 19:19 Injectafer) Breathing Review of Systems Review of Systems: A 10 system review of systems was completed on the patient and is negative except for what is stated in the HPI. Nursing and ancillary documentation was reviewed. [facility] Past Medical History Medical History (normal spontaneous vaginal delivery) x 5 Hemoperitoneum Uterine perforation 2019 following uterine ablation with Dr. Gaby Forbes at [facility], occurred with intra abdominal bleeding and transferred to [place] Parkinson disease patient stated this was due to her severe iron storage problem and is a parkinson like disease HTN (hypertension) Iron deficiency anemia sees hematology and receives iron infusions Surgical History Surgical History S/P FRANSISCO-BSO H/O prior ablation treatment 2019, uterine ablation Family History Family History Mother Hypertension Father Family history of malignant neoplasm of bone, Onset Age: 77 Social History Social History Smoking status: Never smoker Alcohol intake: current Substance use: never Substance use type: does not use Gender identity (if verbalized by the patient): Female Spiritual care concerns: No Exam Narrative: GENERAL: Well-appearing, well-nourished, and in no acute distress. HEAD: Normocephalic, atraumatic. EYES: PERRLA and EOMI. ENT: Nares clear, no rhinorrhea or epistaxis. Mucous membranes moist. NECK: Supple. CHEST: Clear to auscultation. No respiratory distress. HEART: Regular rate and rhythm. No murmur heard. Normal peripheral pulses. ABDOMEN: Soft, nontender, nondistended, normal active bowel sounds. Colostomy present in the left quadrants of the abdomen EXTREMITIES: Normal range of motion. No edema. SKIN: Warm, dry, no rash. NEURO: No focal deficits. Alert and oriented x3. Is somewhat confused PSYCH: Normal mood and affect. Course Vital Signs Vital signs: Vital Signs Temperature 36.7 C 10/15/24 00:17 Pulse Rate 108 H 10/15/24 00:17 Respiratory Rate 20 10/15/24 00:17 Blood Pressure 131/94 H 10/15/24 00:17 Pulse Oximetry 97 10/15/24 00:17 Oxygen Delivery Room Air 10/15/24 00:17 Temperature 36.7 C 10/15/24 00:17 Pulse Rate 94 10/15/24 04:21 Respiratory Rate 13 10/15/24 04:21 Blood Pressure 116/76 10/15/24 04:01 Pulse Oximetry 97 10/15/24 04:21 Oxygen Delivery Room Air 10/15/24 00:17 Medical Decision Making MDM Narrative Medical decision making narrative: Differential diagnosis anxiety, UTI, intra-abdominal infection, sepsis, electrolyte abnormality, dehydration Laboratory studies were obtained urinalysis showed 1+ ketones 1+ leukocyte esterase 0 to white blood cells negative bacteria and negative nitrate Electrolytes showed a normal bilirubin but in slightly elevated AST ALT magnesium was 1.2 patient was given 2 g of magnesium BUN was 19 creatinine is 1.24 the patient was given a L of normal saline CBC showed a White count of 5.0 the patient was afebrile and lactic acid was 1.2 CT scan of the abdomen pelvis showed no acute abnormality Vital Signs Vital Signs: Vital Signs Temperature 36.7 C 10/15/24 00:17 Pulse Rate 108 H 10/15/24 00:17 Respiratory Rate 20 10/15/24 00:17 Blood Pressure 131/94 H 10/15/24 00:17 Pulse Oximetry 97 10/15/24 00:17 Oxygen Delivery Room Air 10/15/24 00:17 Temperature 36.7 C 10/15/24 00:17 Pulse Rate 94 10/15/24 04:21 Respiratory Rate 13 10/15/24 04:21 Blood Pressure 116/76 10/15/24 04:01 Pulse Oximetry 97 10/15/24 04:21 Oxygen Delivery Room Air 10/15/24 00:17 Lab Data 10/15/24 01:12 10/15/24 01:28 Labs: Lab Results 10/15/24 10/15/24 10/15/24 Range/Units 01:12 01:14 01:28 WBC 5.0 (4.5-10.0) K/mm3 RBC 3.50 L (4.2-5.4) M/mm3 Hgb 10.7 L (12.0-15.0) g/dL Hct 32.7 L (37.0-47.0) % MCV 93.4 (80-100) fl MCH 30.6 (26-34) pg MCHC 32.7 (32-36) g/dl RDW 16.2 H (11.5-14.5) % Plt Count 297 (150-375) k/mm3 MPV 10.8 H (7.4-10.4) fl Immature Gran % (Auto) 0.8 H (0-0.5) % Neut % (Auto) 64.7 (45.5-73.1) % Lymph % (Auto) 23.5 (18.3-44.2) % Lewis % (Auto) 7.0 (2.6-8.5) % Eos % (Auto) 2.6 (0-4.4) % Baso % (Auto) 1.4 H (0.2-1.2) % Lymph # (Auto) 1.18 (0.9-3.2) K/mm3 Lewis # (Auto) 0.4 (0.1-0.6) K/mm3 Eos # (Auto) 0.1 (0-0.3) K/mm3 Baso # (Auto) 0.1 (0.0-0.1) K/mm3 Abs Immat Gran (auto) 0.04 H (0.00-0.031) K/mm3 Absolute Neuts (auto) 3.3 (1.3-6.7) K/mm3 Absolute Nucleated RBC 0.000 (0.0-0.012) K/mm3 Nucleated RBC % 0.0 (0.0-0.2) % Sodium 139 (137-145) mmol/L Potassium 3.8 (3.4-5.0) mmol/L Chloride 105 (98-107) mmol/L Carbon Dioxide 19 L (22-30) mmol/L Anion Gap 15 H (4-12) mmol/L BUN 19 H (7-17) mg/dL Creatinine 1.24 H (0.7-1.0) mg/dL Estim Creat Clear Calc 44 ml/min Estimated GFR 45 L (59 - ) Glucose 86 (65-110) mg/dL Lactic Acid 1.2 (0.7-2.0) mmol/L Calcium 10.1 (8.4-10.2) mg/dL Magnesium 1.2 L (1.6-2.3) mg/dL Total Bilirubin 0.9 (0.2-1.3) mg/dL AST 103 H (14-36) U/L ALT 50 H (6-35) U/L Alkaline Phosphatase 206 H (38-126) U/L Troponin I < 0.012 (0.000-0.034) ng/mL Total Protein 7.4 (6.3-8.2) g/dL Albumin 3.7 (3.5-5.1) g/dL Procalcitonin 0.2 ng/mL Urine Color (Yellow) Urine Appearance (Clear) Urine pH (5.0-9.0) Ur Specific [place] (1.001-1.035) Urine Protein (Negative) mg/dL Urine Glucose (UA) (Negative) mg/dL Urine Ketones (Negative) mg/dL Ur Blood (Man) (Negative) Urine Nitrate (Negative) Urine Bilirubin (Negative) Urine Urobilinogen (<2.0) mg/dL Add Ur Microanalysis Leukocyte Esterase Rfl (Negative) WIN/UL Urine RBC (0-2) /hpf Urine WBC (0-3) /hpf Ur Squamous Epith Cells (Few) /hpf Amorphous Sediment (None) Urine Bacteria /hpf Urine Casts Influenza A (RT-PCR) Negative (Negative) Influenza B (RT-PCR) Negative (Negative) RSV (RT-PCR) Negative (Negative) SARS-CoV-2 RNA (RT-PCR) Negative (Negative) 10/15/24 Range/Units 02:43 WBC (4.5-10.0) K/mm3 RBC (4.2-5.4) M/mm3 Hgb (12.0-15.0) g/dL Hct (37.0-47.0) % MCV (80-100) fl MCH (26-34) pg MCHC (32-36) g/dl RDW (11.5-14.5) % Plt Count (150-375) k/mm3 MPV (7.4-10.4) fl Immature Gran % (Auto) (0-0.5) % Neut % (Auto) (45.5-73.1) % Lymph % (Auto) (18.3-44.2) % Lewis % (Auto) (2.6-8.5) % Eos % (Auto) (0-4.4) % Baso % (Auto) (0.2-1.2) % Lymph # (Auto) (0.9-3.2) K/mm3 Lewis # (Auto) (0.1-0.6) K/mm3 Eos # (Auto) (0-0.3) K/mm3 Baso # (Auto) (0.0-0.1) K/mm3 Abs Immat Gran (auto) (0.00-0.031) K/mm3 Absolute Neuts (auto) (1.3-6.7) K/mm3 Absolute Nucleated RBC (0.0-0.012) K/mm3 Nucleated RBC % (0.0-0.2) % Sodium (137-145) mmol/L Potassium (3.4-5.0) mmol/L Chloride (98-107) mmol/L Carbon Dioxide (22-30) mmol/L Anion Gap (4-12) mmol/L BUN (7-17) mg/dL Creatinine (0.7-1.0) mg/dL Estim Creat Clear Calc ml/min Estimated GFR (59 - ) Glucose (65-110) mg/dL Lactic Acid (0.7-2.0) mmol/L Calcium (8.4-10.2) mg/dL Magnesium (1.6-2.3) mg/dL Total Bilirubin (0.2-1.3) mg/dL AST (14-36) U/L ALT (6-35) U/L Alkaline Phosphatase (38-126) U/L Troponin I (0.000-0.034) ng/mL Total Protein (6.3-8.2) g/dL Albumin (3.5-5.1) g/dL Procalcitonin ng/mL Urine Color Dark yellow (Yellow) Urine Appearance Turbid H (Clear) Urine pH 5.0 (5.0-9.0) Ur Specific [place] 1.021 (1.001-1.035) Urine Protein 2+ H (Negative) mg/dL Urine Glucose (UA) Negative (Negative) mg/dL Urine Ketones 1+ H (Negative) mg/dL Ur Blood (Man) 3+ H (Negative) Urine Nitrate Negative (Negative) Urine Bilirubin Negative (Negative) Urine Urobilinogen 0.2 (<2.0) mg/dL Add Ur Microanalysis Reviewed Leukocyte Esterase Rfl 1+ H (Negative) WIN/UL Urine RBC 21-50 H (0-2) /hpf Urine WBC 0-5 (0-3) /hpf Ur Squamous Epith Cells None seen (Few) /hpf Amorphous Sediment Few H (None) Urine Bacteria None seen /hpf Urine Casts 0-2 Influenza A (RT-PCR) (Negative) Influenza B (RT-PCR) (Negative) RSV (RT-PCR) (Negative) SARS-CoV-2 RNA (RT-PCR) (Negative) Discharge Plan Discharge Clinical Impression: Hypomagnesemia Patient Disposition: NH Skilled Nursing/Asst Living Condition: Stable Instructions: Antibiotic Form, Hypomagnesemia (ED) Patient Language: Barbadian Prescriptions: New magnesium oxide 500 mg capsule 500 mg PO BID Qty: 20 0RF No Action metoclopramide HCl [Reglan] 10 mg tablet 10 mg PO Q6H PRN (Reason: nausea and vomiting) Qty: 30 0RF hydrocodone-acetaminophen 5-325 mg Tablet 1 tablet PO Q3H PRN (Reason: Pain Rated 5 Or Less) Qty: 20 0RF cephalexin 500 mg capsule 500 mg PO Q12H Qty: 14 0RF hydrocodone-acetaminophen 5-325 mg tablet 1 tablet PO Q6H PRN (Reason: pain) Qty: 20 0RF ondansetron 4 mg tablet,disintegrating 4 mg PO Q6H PRN (Reason: nausea and vomiting) Qty: 10 0RF cyclobenzaprine 10 mg tablet 10 mg PO BID PRN (Reason: muscle spasm) Qty: 14 0RF clonidine HCl 0.1 mg tablet 0.1 mg PO BID propranolol 60 mg tablet 60 mg PO BID hydrocodone-acetaminophen 10-325 mg tablet 1 tablet PO BID PRN (Reason: Pain) amlodipine 10 mg tablet 10 mg PO DAILY ropinirole 2 mg tablet 2 mg PO TID hydrochlorothiazide 12.5 mg capsule 12.5 mg PO BID folic acid 1 mg tablet 5 mg PO DAILY mirtazapine 15 mg tablet 15 mg PO QPM diazepam 10 mg tablet 10 mg PO TID PRN (Reason: Anxiety) carbidopa-levodopa 25-100 mg tablet 2 tablet PO QID escitalopram oxalate 20 mg tablet 20 mg PO DAILY bupropion HCl 300 mg tablet extended release 24 hr 300 mg PO DAILY Follow-up/Referrals: Sanjay Thayer MD [Primary Care Provider, [facility]] Time of Disposition: 06:10
[2024-10-15 01:24] LABS: Hematocrit 32.7 % (37.0-47.0); Hemoglobin 10.7 g/dL (12.0-15.0); Immature Granulocyte Percent A 0.8 % (0-0.5); Lymphocytes Absolute Auto 1.18 K/mm3 (0.9-3.2); Mean Corpuscular HGB Conc 32.7 g/dl (32-36); Mean Corpuscular Hemoglobin 30.6 pg (26-34); Mean Corpuscular Volume 93.4 fl (80-100); Nucleated Red Blood Cells Absolute Auto 0.000 K/mm3 (0.0-0.012); Nucleated Red Blood Cells Perc 0.0 % (0.0-0.2); Platelet Count Result 297 k/mm3 (150-375); Red Blood Count 3.50 M/mm3 (4.2-5.4); White Blood Count 5.0 K/mm3 (4.5-10.0)
[2024-10-15 02:00] LABS: Influenza A QL RT-PCR Negative (Negative); Influenza B QL RT-PCR Negative (Negative); RSV RNA, RT-PCR Negative (Negative); SARS-CoV-2 RNA PCR Negative (Negative)
[2024-10-15 03:09] LABS: Add Urine Microscopic? YES; Appearance Urine Turbid (Clear); Glucose Urine UA Negative (Negative); Leukocyte Esterase Ur 1+ LEU/UL (Negative); Need Manual Microscopic Reviewed; Nitrate Urine Negative (Negative); Non Pathogenic Casts 0-2; Specific Grav Ur 1.021 (1.001-1.035)
[2024-10-15 03:15] LABS: Alanine Aminotransferase 50 U/L (6-35); Albumin Level 3.7 g/dL (3.5-5.1); Alkaline Phosphatase 206 U/L (38-126); Anion Gap 15 mmol/L (4-12); Aspartate Amino Transferase 103 U/L (14-36); Bilirubin,Total 0.9 mg/dL (0.2-1.3); Blood Urea Nitrogen 19 mg/dL (7-17); Calcium 10.1 mg/dL (8.4-10.2); Carbon Dioxide 19 mmol/L (22-30); Chloride 105 mmol/L (98-107); Estimated CRCL calculation 44 ml/min; Estimated Glomerular Filt Rate 45; Glucose 86 mg/dL (65-110); Magnesium 1.2 mg/dL (1.6-2.3); Potassium 3.8 mmol/L (3.4-5.0); Sodium 139 mmol/L (137-145); Total Protein 7.4 g/dL (6.3-8.2)
[2024-10-15 03:26] LABS: Troponin I < 0.012 ng/mL (0.000-0.034)
[2024-10-15 03:32] LABS: Procalcitonin 0.2 ng/mL
[2024-10-15] MEDS: MAGNESIUM SULF 2 GM/WATER 50ML 2 GM/50 ML BAG IVPB (03:46)
[2024-10-15] MEDS: SODIUM CHLORIDE 0.9% IV 1,000 ML 999 ML IV CONT (05:15)
--- NOTE | 2024-10-15 07:22 | PC.NURSE ---
Annamarie Lange of [facility] notified of patient discharge. Lissa aware of patient return by ambulance.
== END 2024-10-15 07:59 ==
PROVIDERS: Emergency Provider Emergency Medicine; PCP Emergency Medicine
DX: E83.42 Hypomagnesemia (principal); Z20.822 Contact with and (suspected) exposure to COVID-19; I10 Essential (primary) hypertension; D50.9 Iron deficiency anemia, unspecified; Z93.3 Colostomy status; Z90.710 Acquired absence of both cervix and uterus; Z90.722 Acquired absence of ovaries, bilateral; Z90.79 Acquired absence of other genital organ(s); Z79.899 Other long term (current) drug therapy; R94.31 Abnormal electrocardiogram [ECG] [EKG]
CPT/HCPCS: 36415; 71045; 74177; 80053; 81001; 83605; 83735; 84145; 84484; 85025; 87086; 87637; 93005; 96365; 96366; 96375; 99284; J3360; J3475; J7030; Q9967